=== PATIENT | female | born 1935 | race African-American/Black ===

== ENCOUNTER 2019-07-13 09:38 | Emergency (ER) | payer OTHER ==
[2019-07-13 10:21] VITALS: TEMP 97.1; BMI 21.9
--- NOTE | 2019-07-13 10:43 | PDOC ---
Documentation entered by Delmy Bustamante SCRIBE, acting as scribe for Sharif Menezes MD. Sharif Menezes MD: This documentation has been prepared by the Robby reno Sammi, SCRIBE, under my direction and personally reviewed by me in its entirety. I confirm that the documentation accurately reflects all work, treatment, procedures, and medical decision making performed by me. History of Present Illness - General Chief Complaint: Injury Stated Complaint: FALL Time Seen by Provider: 07/13/19 10:21 - History of Present Illness Initial Comments: 07/13/19 10:38 The patient is an 83 year old female who presents to the emergency department for evaluation of right knee pain s/p falling out of bed. The patient states she was turning in bed when she fell out onto her knees. The patient reports she was able to get up and ambulate on her own afterwards. Denies LOC or head trauma. Denies dizziness or lightheadedness prior to event. Denies chest pain or shortness of breath. Denies fever, chills, nausea, vomiting, diarrhea and constipation. Denies dysuria, frequency, urgency and hematuria. Denies neck, back, or hip pain. PCP: Guillaume Medical history: hypertension, hypercholesterolemia, and diabetes Allergies: enalapril Past History - Past Medical History Allergies/Adverse Reactions: Allergies Allergy/AdvReac Type Severity Reaction Status Date / Time enalapril [Enalapril] Allergy Severe anaphylaxsi Verified 07/13/19 10:21 s Home Medications: Ambulatory Orders Aspirin [ASA -] 81 mg PO DAILY 11/20/12 Calcium Carb/Vit D3/Minerals [Calcium 600 + D Tablet] 1 each PO DAILY 11/20/12 Docusate Sodium [Colace -] 100 mg PO BID 11/20/12 Ergocalciferol (Vitamin D2) [Vitamin D] 50,000 unit PO WEEKLY 11/20/12 Glyburide 5 mg PO DAILY 11/20/12 Hydrochlorothiazide [Hctz] 12.5 mg PO DAILY 11/20/12 Simvastatin [Zocor -] 20 mg PO HS 11/20/12 Spironolactone [Aldactone -] 25 mg PO BID 11/20/12 Anemia: No Asthma: Yes (hasn't had an attack in 13 years) Cancer: No Cardiac Disorders: No CVA: No COPD: No CHF: No Dementia: No Diabetes: Yes Dialysis: (hx renal failure; not on dialysis) GI Disorders: No Disorders: No HTN: Yes Hypercholesterolemia: Yes Liver Disease: No Seizures: No Thyroid Disease: No - Suicide/Smoking/Psychosocial Hx Smoking Status: Yes Smoking History: Never smoked Have you smoked in the past 12 months: No Number of Cigarettes Smoked Daily: 0 Hx Alcohol Use: No Drug/Substance Use Hx: No Substance Use Type: None Hx Substance Use Treatment: No Review of Systems - Review of Systems Comments:: 07/13/19 10:39 GENERAL/CONSTITUTIONAL: No fever or chills. No weakness. HEAD, EYES, EARS, NOSE AND THROAT: No change in vision. No ear pain or discharge. No sore throat. CARDIOVASCULAR: No chest pain, no shortness of breath, no loss of consciousness RESPIRATORY: No cough, wheezing, or hemoptysis. GASTROINTESTINAL: No nausea, vomiting, diarrhea or constipation. GENITOURINARY: No dysuria, frequency, or change in urination. MUSCULOSKELETAL: (+)Right knee pain. No neck or back pain. SKIN: No rash NEUROLOGIC: No vertigo, no change in strength/sensation. *Physical Exam - Vital Signs Last Vital Signs Temp Pulse Resp BP Pulse Ox 97.1 F L 95 H 20 105/60 98 07/13/19 10:17 07/13/19 10:17 07/13/19 10:17 07/13/19 10:17 07/13/19 10:17 - Physical Exam Comments: 07/13/19 10:44 "GENERAL: Awake, alert, and fully oriented, in no acute distress. HEAD: No signs of trauma EYES: PERRLA, EOMI, sclera anicteric, conjunctiva clear ENT: Auricles normal inspection, hearing grossly normal, nares patent, oropharynx clear without exudates. Moist mucosa NECK: Nontender, no stepoffs, Normal ROM, supple, no lymphadenopathy, JVD, or masses LUNGS: Breath sounds equal, clear to auscultation bilaterally. No wheezes, and no crackles HEART: Regular rate and rhythm, normal S1 and S2, no murmurs, rubs or gallops ABDOMEN: Soft, nontender, normoactive bowel sounds. No guarding, no rebound. No masses EXTREMITIES: + mild TTP over R proximal tibia, Normal range of motion, no edema. No clubbing or cyanosis. No cords, erythema NEUROLOGICAL: Cranial nerves II through XII intact. 5/5 strength and sensation in all extremities, Normal speech, normal gait, normal cerebellar function SKIN: Warm, Dry, normal turgor, no rashes or lesions noted. ED Treatment Course - ADDITIONAL ORDERS Additional order review: Laboratory Results 07/13/19 10:13 POC Glucometer 132 07/13/19 10:13 POC Glucometer 132 Medical Decision Making - Medical Decision Making 07/13/19 10:44 83 F with R knee pain after mechanical fall out of bed. - XR R knee 07/13/19 13:01 XR negative Pt is well appearing, with normal vitals. Clinically stable for DC at this time. I discussed the physical exam findings, ancillary test results and final diagnoses with the patient. I answered all of the patient's questions. The patient was satisfied with the care received and felt comfortable with the discharge plan and treatment plan. The patient agrees to follow up with the primary care physician within 24-72 hours. *DC/Admit/Observation/Transfer Diagnosis at time of Disposition: Fall, Knee pain - Discharge Dispostion Disposition: HOME - Referrals Referrals: Kevyn Galaviz MD [Primary Care Provider] - Sharif Mcintosh MD [Staff Physician] - - Patient Instructions Printed Discharge Instructions: DI for Knee Pain Additional Instructions: If your knee pain does not improve within 72 hours, make an appointment with an orthopedic surgeon for further evaluation. If you experience worsening pain, swelling, redness, diffculty walking or bearing weight, or any other concerning symptoms, return to the ER immediately. - Post Discharge Activity - Attestations Physician Attestion: 07/13/19 12:34 I, Dr. Sharif Menezes MD, attest that this document has been prepared under my direction and personally reviewed by me in its entirety. I further attest, that it accurately reflects all work, treatment, procedures and medical decision -making performed by me.
[2019-07-13 13:24] VITALS: BP 118/60; PULSE 76
== END 2019-07-13 13:23 | disposition home or self-care (01) ==
LOC: JER 09:38
DX: M25.561 Pain in right knee (principal); W06.XXXA Fall from bed, initial encounter; Y93.89 Activity, other specified; Y92.032 Bedroom in apartment as the place of occurrence of the external cause; Y99.8 Other external cause status; I10 Essential (primary) hypertension; E11.9 Type 2 diabetes mellitus without complications; E78.00 Pure hypercholesterolemia, unspecified; Z79.84 Long term (current) use of oral hypoglycemic drugs; Z87.448 Personal history of other diseases of urinary system; Z87.09 Personal history of other diseases of the respiratory system
CPT/HCPCS: 73562-TC-RT-FY; 82962; 99281-25

== ENCOUNTER 2019-10-10 09:38 | Emergency (ER) | payer OTHER ==
[2019-10-10 09:55] VITALS: BMI 23.8
--- NOTE | 2019-10-10 10:09 | PDOC ---
History of Present Illness - General Chief Complaint: Blood Sugar Problem Stated Complaint: DIABETIC History Source: Patient Exam Limitations: No Limitations Past History - Past Medical History Allergies/Adverse Reactions: Allergies Allergy/AdvReac Type Severity Reaction Status Date / Time enalapril [Enalapril] Allergy Severe anaphylaxsi Verified 10/10/19 09:55 s Home Medications: Ambulatory Orders Aspirin [ASA -] 81 mg PO DAILY 11/20/12 Calcium Carb/Vit D3/Minerals [Calcium 600 + D Tablet] 1 each PO DAILY 11/20/12 Docusate Sodium [Colace -] 100 mg PO BID 11/20/12 Ergocalciferol (Vitamin D2) [Vitamin D] 50,000 unit PO WEEKLY 11/20/12 Glyburide 5 mg PO DAILY 11/20/12 Hydrochlorothiazide [Hctz] 12.5 mg PO DAILY 11/20/12 Simvastatin [Zocor -] 20 mg PO HS 11/20/12 Spironolactone [Aldactone -] 25 mg PO BID 11/20/12 Anemia: No Asthma: Yes (hasn't had an attack in 13 years) Cancer: No Cardiac Disorders: No CVA: No COPD: No CHF: No Dementia: No Diabetes: Yes Dialysis: (hx renal failure; not on dialysis) GI Disorders: No Disorders: No HTN: Yes Hypercholesterolemia: Yes Liver Disease: No Seizures: No Thyroid Disease: No - Psycho Social/Smoking Cessation Hx Smoking Status: Yes Smoking History: Never smoked Have you smoked in the past 12 months: No Number of Cigarettes Smoked Daily: 0 Information on smoking cessation initiated: No Hx Alcohol Use: No Drug/Substance Use Hx: No Substance Use Type: None Hx Substance Use Treatment: No *Physical Exam - Vital Signs Last Vital Signs Temp Pulse Resp BP Pulse Ox 98.0 F 94 H 16 127/70 100 10/10/19 09:52 10/10/19 09:52 10/10/19 09:52 10/10/19 09:52 10/10/19 09:52 ED Treatment Course - LABORATORY CBC & Chemistry Diagram: 10/10/19 11:30 10/10/19 11:30 - ADDITIONAL ORDERS Additional order review: Laboratory Results 10/10/19 09:54 POC Glucometer 174 10/10/19 09:54 POC Glucometer 174 Discharge - Discharge Information Problems reviewed: Yes Clinical Impression/Diagnosis: Hypoglycemia Condition: Improved - Admission No - Follow up/Referral Referrals: Kevyn Galaviz MD [Primary Care Provider] - - Patient Discharge Instructions Patient Printed Discharge Instructions: DI for Hypoglycemia Additional Instructions: Please return to the emergency department with any new or worsening symptoms or concerns. Please follow up with your primary care physician within 72 hours. - Post Discharge Activity
[2019-10-10] MEDS ORDERED: ACETAMINOPHEN 1000 MG/100 ML VIAL (NON FORMULARY) IVPB ONE (10:17)
--- NOTE | 2019-10-10 10:25 | PDOC ---
Attending Attestation - Resident Resident Name: Corey Serrano - ED Attending Attestation I have performed the following: I have examined & evaluated the patient, The case was reviewed & discussed with the resident, I agree w/resident's findings & plan, Exceptions are as noted - HPI HPI: 10/10/19 10:26 83y F history of asthma, CKD, hypertension, hyperlipidemia DM, presents with a complaint of not feeling well. Patient states she had some mild epigastric pain this morning and 'fell out of his bed', per the aide the she was unable to access her room this morning they called super who broke down the chain -EMS was called noted patient blood sugar was in the 48 and pt was given D10 with improvement of BGM. Patient notes that she also fell out of bed last couple of days ago and injured her foot. Pt denies any nausea/vomiting, diaphoresis, sob , cough, fever/chills, leg swelling, back pain, extremity pain, numbness/ tingling/weakness. Physical exam: GENERAL: The patient is awake, alert, and fully oriented, Nontoxic - in no acute distress. HEAD: Normocephalic, atraumatic. EYES: extraocular movements intact, sclera anicteric, conjunctiva clear. ENT: Normal voice, Moist mucous membranes. NECK: Normal range of motion, supple LUNGS: Breath sounds equal, clear to auscultation bilaterally. No wheezes, no rhonchi, no rales. HEART: Regular rate and rhythm, normal S1 and S2 without murmur, rub or gallop. ABDOMEN: Soft, nontender, No guarding, no rebound. No CVA tenderness EXTREMITIES: Normal range of motion, no edema. Mild tenderness/bruising to L medial ankle. NEUROLOGICAL: No facial assymetry, Normal speech, PSYCH: Normal mood, normal affect. SKIN: Warm, Dry, normal turgor, will ck labs, screen for ACS, pancreatitis unclear cause of her hypotclyemia - she is on a sulfonylurea, but her meds are predivided into pill packs and she has not taken anything extra. will obtain xray of her ankle to r/o fx will reassess and recheck her bgm - Physicial Exam PE: 10/10/19 16:48 see above - Medical Decision Making 10/10/19 15:33 The patient's repeat BGM was 46 I suspect this is due to not having eaten anything since last night. We will give the patient some food and then will recheck her BGM. Heart Score/ECG Review - ECG Impressions Comment:: 10/10/19 16:48 Twelve-lead EKG was performed and reviewed by me. There is normal sinus rhythm with a normal rate. Rate of [address] changes suggestive of acute ischemia
[2019-10-10 11:48] LABS: BASO % 0.7 % (0-2.0); EOS % 1.4 % (0-4.5); HEMOGLOBIN 11.3 GM/dL (10.7-15.3); LYMPH % 17.9 % (8-40); MCH 25.6 pg (25.7-33.7); MCHC 33.1 g/dl (32.0-36.0); MEAN CELL VOLUME 77.4 fl (80-96); MEAN PLT VOLUME 6.5 fl (7.5-11.1); MONO % 7.6 % (3.8-10.2); NEUT % 72.4 % (42.8-82.8); PLATELET COUNT 423 K/MM3 (134-434); RDW 14.7 % (11.6-15.6); WHITE BLOOD COUNT 7.1 K/mm3 (4.0-10.0)
[2019-10-10 12:10] LABS: BILIRUBIN,TOTAL 0.3 mg/dL (0.2-1); BLOOD UREA NITROGEN 12.9 mg/dL (7-18); CALCIUM 9.5 mg/dL (8.5-10.1); CREATININE 1.4 mg/dL (0.55-1.3); POTASSIUM 4.2 mmol/L (3.5-5.1); TOT PROT 7.6 g/dl (6.4-8.2)
[2019-10-10 18:41] VITALS: BP 139/73; PULSE 97; TEMP 98.6
--- NOTE | 2019-10-11 09:25 | EKG ---
Test Reason : Blood Pressure : / mmHG Vent. Rate : 091 BPM Atrial Rate : 091 BPM P-R Int : 186 ms QRS Dur : 070 ms QT Int : 340 ms P-R-T Axes : 072 -22 058 degrees QTc Int : 418 ms NORMAL SINUS RHYTHM POSSIBLE LEFT ATRIAL ENLARGEMENT BORDERLINE ECG WHEN COMPARED WITH ECG OF 07-FEB-2014 13:09, NO SIGNIFICANT CHANGE WAS FOUND Confirmed by MD Stefanie, Darell ([id number]) on 10/11/2019 9:24:45 AM Referred By: Confirmed By:Darell Watts MD
== END 2019-10-10 18:44 | disposition home or self-care (01) ==
LOC: JER 09:38
PROC: 3E033NZ Introduction of Analgesics, Hypnotics, Sedatives into Peripheral Vein, Percutaneous Approach (ICD-10-PCS; principal; 2019-10-10)
DX: E11.649 Type 2 diabetes mellitus with hypoglycemia without coma (principal); Z79.84 Long term (current) use of oral hypoglycemic drugs; I12.9 Hypertensive chronic kidney disease with stage 1 through stage 4 chronic kidney disease, or unspecified chronic kidney disease; E11.22 Type 2 diabetes mellitus with diabetic chronic kidney disease; N18.9 Chronic kidney disease, unspecified; E78.00 Pure hypercholesterolemia, unspecified; Z87.09 Personal history of other diseases of the respiratory system; Z88.8 Allergy status to other drugs, medicaments and biological substances; W06.XXXA Fall from bed, initial encounter; Y93.89 Activity, other specified; Y92.032 Bedroom in apartment as the place of occurrence of the external cause; Y99.8 Other external cause status
CPT/HCPCS: 36415; 70450-TC; 71045-TC-FY; 72125-TC; 73610-TC-LT-FY; 73630-TC-LT; 80053; 82550; 82962; 83690; 84484; 85025; 93005; 93010; 96374; 99283-25; J0131

== ENCOUNTER 2019-11-22 10:57 | Emergency (ER) | payer OTHER ==
--- NOTE | 2019-11-22 11:23 | PDOC ---
History of Present Illness - General Stated Complaint: HYPOGLYCEMIA - History of Present Illness Initial Comments: 11/22/19 11:25 83 yo F with h/o asthma, HTN, HLD, DM, CKD who p/w hypgoclycemia. Patient arrives EMS from home, lives alone, with home health aide/assistance. Patient home health aide reports that patient did not answer door on arrival. Had to call management to let her into apartment. At baseline patient conversational, but this AM patient in bed, partially responsiver to questions. Home health aide called EMS and EMS reports BS~50. Patient usually ambulatory with walker in AM to open door. Patient health aide reports this how patient typically presents with hypoglycemic events following skipped meals. On glyburide 5 mg PO daily, and compliant with medication as directed. However, patient states that she did not take morning medications. Did not take medications yesterday evening (11/21/18) Denies overdose of medication. Patient also reports fatigue and shortness of breath this AM at rest, now resolved. Patient denies ALEXANDER, vision change, palpitations, cough, wheezing, orthopena, PND , leg swelling/pain, N/V, F,C, CP, urinary complaints, hematuria, BPR, abdominal pain, diarrhea, constipation, lightheadedness, weakness, sensory changes. PMHx: as noted above ROS: as noted SHx: Denies Etoh, IVDA, tobacco use Allergies: NKDA Past History - Past Medical History Allergies/Adverse Reactions: Allergies Allergy/AdvReac Type Severity Reaction Status Date / Time enalapril [Enalapril] Allergy Severe anaphylaxsi Verified 11/22/19 11:26 s Home Medications: Ambulatory Orders Aspirin [ASA -] 81 mg PO DAILY 11/20/12 Calcium Carb/Vit D3/Minerals [Calcium 600 + D Tablet] 1 each PO DAILY 11/20/12 Docusate Sodium [Colace -] 100 mg PO BID 11/20/12 Ergocalciferol (Vitamin D2) [Vitamin D] 50,000 unit PO WEEKLY 11/20/12 Glyburide 5 mg PO DAILY 11/20/12 Hydrochlorothiazide [Hctz] 12.5 mg PO DAILY 11/20/12 Simvastatin [Zocor -] 20 mg PO HS 11/20/12 Spironolactone [Aldactone -] 25 mg PO BID 11/20/12 Anemia: No Asthma: Yes (hasn't had an attack in 13 years) Cancer: No Cardiac Disorders: No CVA: No COPD: No CHF: No Dementia: No Diabetes: Yes Dialysis: (hx renal failure; not on dialysis) GI Disorders: No Disorders: No HTN: Yes Hypercholesterolemia: Yes Liver Disease: No Seizures: No Thyroid Disease: No - Psycho Social/Smoking Cessation Hx Smoking Status: Yes Smoking History: Never smoked Have you smoked in the past 12 months: No Number of Cigarettes Smoked Daily: 0 Hx Alcohol Use: No Drug/Substance Use Hx: No Substance Use Type: None Hx Substance Use Treatment: No Review of Systems - Review of Systems Comments:: 11/22/19 11:25 GENERAL/CONSTITUTIONAL: No fever or chills. No weakness. HEAD, EYES, EARS, NOSE AND THROAT: No change in vision. No ear pain or discharge. No sore throat. CARDIOVASCULAR: + SOB. No chest pain. RESPIRATORY: No cough, wheezing, or hemoptysis. GASTROINTESTINAL: No nausea, vomiting, diarrhea or constipation. GENITOURINARY: No dysuria, frequency, or change in urination. MUSCULOSKELETAL: No joint or muscle swelling or pain. No neck or back pain. SKIN: No rash NEUROLOGIC: + Fatigue. No headache, vertigo, loss of consciousness, or change in strength/sensation. ENDOCRINE: No increased thirst. No abnormal weight change HEMATOLOGIC/LYMPHATIC: No anemia, easy bleeding, or history of blood clots. ALLERGIC/IMMUNOLOGIC: No hives or skin allergy. *Physical Exam - Physical Exam 11/22/19 11:26 GENERAL: Awake, alert, and fully oriented, in no acute distress HEAD: No signs of trauma, normocephalic, atraumatic EYES: PERRLA, EOMI, sclera anicteric, conjunctiva clear ENT: Auricles normal inspection, hearing grossly normal, nares patent, oropharynx clear without exudates. Moist mucosa NECK: Normal ROM, supple, no lymphadenopathy, JVD, or masses LUNGS: No distress, speaks full sentences, clear to auscultation bilaterally HEART: Regular rate and rhythm, normal S1 and S2, no murmurs, rubs or gallops, peripheral pulses normal and equal bilaterally. ABDOMEN: Soft, nontender, normoactive bowel sounds. No guarding, no rebound. No masses EXTREMITIES : Normal inspection, Normal range of motion, no edema. No clubbing or cyanosis NEUROLOGICAL: Cranial nerves II through XII grossly intact. Normal speech, no focal sensorimotor deficits SKIN: Warm, Dry, normal turgor, no rashes or lesions noted ED Treatment Course - LABORATORY CBC & Chemistry Diagram: 11/22/19 11:40 11/22/19 11:40 Medical Decision Making - Medical Decision Making 11/22/19 11:31 83 yo F with h/o asthma, HTN, HLD, DM, CKD BIBEMS with hypgoclycemia BS~50, AMS/ lethargy. HR 106, vitals otherwise wnl, AF, A&OX3. BS ~32. On initial exam in ED patient A&Ox2, partially following commands, and slow speech. BS~30 in ED. Patient given D50 25gm, with improvement in BS to 302, with return to baseline mental status A&Ox3. Patient reports last home glyburide use yesterday (11/21/18 ) morning. Denies beta kristie or long acting insulin use. Will consider infectious etiology, although, patient currently without infectious sx./ complaints. Patient last meal was yesterday (11/21/18) at approximately 5:30 PM. Currently denies cough, wheezing, N/V, F,C, CP, palpitations, SOB, urinary complaints, hematuria, BPR, abdominal pain, diarrhea, lightheadedness, weakness , sensory changes. Will obtain basic lab eval, reassess/monitor BS. 11/22/19 11:32 ED Course: BS~302 11/22/19 13:33 Laboratory Tests 11/22/19 11/22/19 11:40 11:40 WBC 5.9 Hgb 11.9 Hct 36.3 Plt Count 402 Sodium 138 Potassium 4.0 BUN 10.3 Creatinine 1.2 Random Glucose 31 L* AST 25 ALT 17 11/22/19 14:18 Pt. tolerating PO intake Repeat BS ~100 Stable for d/c with return precautions. Discharge - Discharge Information Problems reviewed: Yes Clinical Impression/Diagnosis: Hypoglycemia - Admission No - Follow up/Referral Referrals: Kevyn Galaviz MD [Primary Care Provider] - - Patient Discharge Instructions Patient Printed Discharge Instructions: DI for Hypoglycemia Additional Instructions: Please return to the emergency department with any new or worsening symptoms or concerns. Please follow up with your primary care physician within 72 hours. - Post Discharge Activity
[2019-11-22 11:26] VITALS: BMI 16.5
[2019-11-22] MEDS ORDERED: DEXTROSE 50%-WATER - 25 GM/50 ML VIAL IVPUSH ONE (11:45)
[2019-11-22] MEDS ORDERED: DEXTROSE 50%-WATER 25 GM/50 ML DISP.SYRIN ONE (11:46)
[2019-11-22 12:27] LABS: BASO % 0.8 % (0-2.0); EOS % 1.2 % (0-4.5); HEMATOCRIT 36.3 % (32.4-45.2); HEMOGLOBIN 11.9 GM/dL (10.7-15.3); LYMPH % 15.8 % (8-40); MCH 25.4 pg (25.7-33.7); MCHC 32.7 g/dl (32.0-36.0); MEAN CELL VOLUME 77.7 fl (80-96); MEAN PLT VOLUME 7.1 fl (7.5-11.1); MONO % 7.3 % (3.8-10.2); NEUT % 74.9 % (42.8-82.8); PLATELET COUNT 402 K/MM3 (134-434); RBC 4.67 M/mm3 (3.60-5.2); RDW 17.3 % (11.6-15.6); WHITE BLOOD COUNT 5.9 K/mm3 (4.0-10.0)
--- NOTE | 2019-11-22 12:33 | EKG ---
Test Reason : Blood Pressure : / mmHG Vent. Rate : 108 BPM Atrial Rate : 108 BPM P-R Int : 190 ms QRS Dur : 074 ms QT Int : 336 ms P-R-T Axes : 054 -17 053 degrees QTc Int : 450 ms SINUS TACHYCARDIA POSSIBLE LEFT ATRIAL ENLARGEMENT BORDERLINE ECG Confirmed by MD MYRIAM, NEGIN ([id number]) on 11/22/2019 12:33:07 PM Referred By: Confirmed By:NEGIN MIGUEL MD
--- NOTE | 2019-11-22 12:37 | PDOC ---
Documentation entered by Mila Garvin SCRIBE, acting as scribe for Sharif Menezes MD. Sharif Menezes MD: This documentation has been prepared by the Virgie reno Xhesika, SCRIBE, under my direction and personally reviewed by me in its entirety. I confirm that the documentation accurately reflects all work, treatment, procedures, and medical decision making performed by me. Attending Attestation - Resident Resident Name: MattDiallo - ED Attending Attestation I have performed the following: I have examined & evaluated the patient, The case was reviewed & discussed with the resident, I agree w/resident's findings & plan, Exceptions are as noted - HPI HPI: 11/22/19 12:03 The patient is a 83 year old female, with a significant PMH of asthma, HTN, HLD , DM, CKD who presents to the emergency department for hypoglycemia. Patient is a poor historian but pts aid at bedside providing history. Aid at bedside states the pt did not open the door this morning and had to call management to enter patient's home. Aid notes she found the patient confused, slow to respond and in bed this morning. Aid notes these symptoms are similar to patients previous hypoglycemic events. Pt states she is on Glyburide and did not eat last night or this morning. Reports feeling fatigued this morning but denies any other complaints. The patient denies chest pain, SOB, headache and dizziness. Denies fever, chills , cough, nausea, vomiting, diarrhea and constipation. Denies dysuria, frequency , urgency and hematuria. In ED, pt was found to have fingerstick of 30. Pt was given 1 amp D50 and subsequently returned to baseline, according to aide. Allergies: NKDA PCP: Kevyn Granado - Physicial Exam PE: 11/22/19 12:05 GENERAL: Awake, alert, in no acute distress. HEAD: No signs of trauma EYES: PERRLA, EOMI, sclera anicteric, conjunctiva clear ENT: Auricles normal inspection, hearing grossly normal, nares patent, oropharynx clear without exudates. Moist mucosa NECK: Nontender, no stepoffs, Normal ROM, supple, no lymphadenopathy, JVD, or masses LUNGS: Breath sounds equal, clear to auscultation bilaterally. No wheezes, and no crackles HEART: Regular rate and rhythm, normal S1 and S2, no murmurs, rubs or gallops ABDOMEN: Soft, nontender, normoactive bowel sounds. No guarding, no rebound. No masses EXTREMITIES: Normal range of motion, no edema. No clubbing or cyanosis. No cords, erythema, or tenderness NEUROLOGICAL: Cranial nerves II through XII intact. 5/5 strength and sensation in all extremities, Normal speech, normal gait, normal cerebellar function SKIN: Warm, Dry, normal turgor, no rashes or lesions noted. - Medical Decision Making 11/22/19 12:46 83 F with transient episode of AMS, now resolved. Likely 2/2 hypoglycemia. No evidence of sulfonylurea overdose. - labs - Repeat fingerstick - PO 11/22/19 14:02 Labs unremarkable (other than initial glucose of 30) Repeat fingerstick wnl Pt tolerating PO Pt is well appearing, with normal vitals. Clinically stable for DC at this time. I discussed the physical exam findings, ancillary test results and final diagnoses with the patient. I answered all of the patient's questions. The patient was satisfied with the care received and felt comfortable with the discharge plan and treatment plan. The patient agrees to follow up with the primary care physician within 24-72 hours.
[2019-11-22 12:52] LABS: ALBUMIN 3.6 g/dl (3.4-5.0); BILIRUBIN,TOTAL 0.4 mg/dL (0.2-1); BLOOD UREA NITROGEN 10.3 mg/dL (7-18); CALCIUM 9.8 mg/dL (8.5-10.1); CREATININE 1.2 mg/dL (0.55-1.3); TOT PROT 8.4 g/dl (6.4-8.2)
[2019-11-22 16:56] VITALS: BP 156/71; PULSE 87; TEMP 98
== END 2019-11-22 16:57 | disposition home or self-care (01) ==
LOC: JER 10:57
DX: E11.649 Type 2 diabetes mellitus with hypoglycemia without coma (principal); Z79.84 Long term (current) use of oral hypoglycemic drugs; E78.00 Pure hypercholesterolemia, unspecified; I12.9 Hypertensive chronic kidney disease with stage 1 through stage 4 chronic kidney disease, or unspecified chronic kidney disease; E11.22 Type 2 diabetes mellitus with diabetic chronic kidney disease; N18.9 Chronic kidney disease, unspecified
CPT/HCPCS: 36415; 80053; 82962; 85025; 93005; 93010; 99284-25

== ENCOUNTER 2022-08-07 21:49 | Inpatient (IN) | payer OTHER ==
[2022-08-08] LABS: BASO % 0.3 % (0-2.0); HEMATOCRIT 42.8 % (32.4-45.2); HEMOGLOBIN 13.5 GM/dL (10.7-15.3); LYMPH % 7.8 % (8-40); MCH 27.7 pg (25.7-33.7); MCHC 31.6 g/dl (32.0-36.0); MEAN CELL VOLUME 87.6 fl (80-96); MEAN PLT VOLUME 7.6 fl (7.5-11.1); MONO % 4.9 % (3.8-10.2); PLATELET COUNT 332 10^3/uL (134-434); RBC 4.88 M/mm3 (3.60-5.2); RDW 14.5 % (11.6-15.6); WHITE BLOOD COUNT 16.2 K/mm3 (4.0-10.0)
[2022-08-08 00:16] LABS: ALBUMIN 4.3 g/dl (3.4-5.0); BLOOD UREA NITROGEN 33.5 mg/dL (7-18)
[2022-08-08 00:19] LABS: CREATININE 1.8 mg/dL (0.55-1.3)
[2022-08-08 00:21] LABS: BILIRUBIN,TOTAL 0.8 mg/dL (0.2-1); TOT PROT 8.5 g/dl (6.4-8.2)
[2022-08-08] MEDS ORDERED: SODIUM CHLORIDE 0.9% 500 ML INFUS.BAG IV ONE ×2 (00:41→03:09)
[2022-08-08] MEDS ORDERED: HALOPERIDOL LACTATE 5 MG/ML IV ONE (03:55)
[2022-08-08] MEDS ORDERED: HALOPERIDOL LACTATE 5 MG/ML ONE (03:56)
[2022-08-08] MEDS ORDERED: LACTATED RINGERS SOLUTION 1,000 ML IV SCH ×2 (05:15→05:29)
[2022-08-08] MEDS: HEPARIN NA (PORCINE) 5,000 UNITS/ML 1ML VIAL SQ SCH ×3 (06:40→23:42)
[2022-08-08] MEDS: INSULIN SLIDING SCALE (NOVOLOG) 1 VIAL SQ SCH ×4 (06:41→23:42)
[2022-08-08 15:18] VITALS: BMI 15.9
[2022-08-09] MEDS: HEPARIN NA (PORCINE) 5,000 UNITS/ML 1ML VIAL SQ SCH ×3 (00:06→13:43)
[2022-08-09] MEDS: INSULIN SLIDING SCALE (NOVOLOG) 1 VIAL SQ SCH ×3 (00:07→11:55)
[2022-08-09 10:54] VITALS: RESP 20
[2022-08-09 13:07] LABS: BASO % 0.5 % (0-2.0); EOS % 0.6 % (0-4.5); HEMATOCRIT 39.7 % (32.4-45.2); HEMOGLOBIN 13.3 GM/dL (10.7-15.3); LYMPH % 16.4 % (8-40); MCH 28.4 pg (25.7-33.7); MCHC 33.5 g/dl (32.0-36.0); MEAN CELL VOLUME 84.9 fl (80-96); MEAN PLT VOLUME 7.2 fl (7.5-11.1); MONO % 6.5 % (3.8-10.2); PLATELET COUNT 318 10^3/uL (134-434); RBC 4.68 M/mm3 (3.60-5.2); RDW 14.2 % (11.6-15.6); WHITE BLOOD COUNT 9.7 K/mm3 (4.0-10.0)
[2022-08-09 13:31] LABS: CALCIUM 9.9 mg/dL (8.5-10.1)
[2022-08-09 13:33] LABS: ALBUMIN 3.6 g/dl (3.4-5.0); BLOOD UREA NITROGEN 26.4 mg/dL (7-18); MAGNESIUM 2.2 mg/dL (1.8-2.4)
[2022-08-09 13:35] LABS: CREATININE 1.2 mg/dL (0.55-1.3); PHOSPHOROUS 2.2 mg/dL (2.5-4.9)
[2022-08-09 13:36] LABS: BILIRUBIN,TOTAL 0.8 mg/dL (0.2-1)
[2022-08-09 13:37] LABS: TOT PROT 7.5 g/dl (6.4-8.2)
[2022-08-09 15:33] VITALS: BP 136/75; PULSE 92; TEMP 98.8
== END 2022-08-09 15:39 | disposition home health service (06) | DRG 884 ==
LOC: JER 21:49 → JERBED 08-08 03:11 → J8W 08-08 05:31
PROVIDERS: ADMIT Internal Medicine; ATTEND Internal Medicine
DX: F03.918 Unspecified dementia, unspecified severity, with other behavioral disturbance (principal); N17.9 Acute kidney failure, unspecified; J45.909 Unspecified asthma, uncomplicated; Z91.83 Wandering in diseases classified elsewhere; I12.9 Hypertensive chronic kidney disease with stage 1 through stage 4 chronic kidney disease, or unspecified chronic kidney disease; E11.22 Type 2 diabetes mellitus with diabetic chronic kidney disease; N18.9 Chronic kidney disease, unspecified; I44.0 Atrioventricular block, first degree; D72.829 Elevated white blood cell count, unspecified; Z79.84 Long term (current) use of oral hypoglycemic drugs
CPT/HCPCS: 0241U-QW; 36415; 71045-TC-FY; 80053; 82550; 82553; 82962; 83036; 83735; 84100; 85025; 87040; 93005; 93010; 99285-25; J1644

== ENCOUNTER 2022-10-17 13:13 | Observation (INO) | payer OTHER ==
[2022-10-17] MEDS ORDERED: ACETAMINOPHEN 500 MG TABLET (FP) PO ONE (14:30)
[2022-10-17 19:00] LABS: BASO % 0.6 % (0-2.0); EOS % 1.4 % (0-4.5); HEMATOCRIT 40.3 % (32.4-45.2); HEMOGLOBIN 13.3 GM/dL (10.7-15.3); MCH 28.5 pg (25.7-33.7); MEAN CELL VOLUME 86.3 fl (80-96); MEAN PLT VOLUME 7.6 fl (7.5-11.1); MONO % 5.7 % (3.8-10.2); NEUT % 67.3 % (42.8-82.8); PLATELET COUNT 346 10^3/uL (134-434); RBC 4.68 M/mm3 (3.60-5.2); RDW 13.9 % (11.6-15.6); WHITE BLOOD COUNT 9.9 K/mm3 (4.0-10.0)
[2022-10-17 19:22] LABS: CALCIUM 9.3 mg/dL (8.5-10.1)
[2022-10-17 19:23] LABS: ALBUMIN 3.8 g/dl (3.4-5.0); BLOOD UREA NITROGEN 26.6 mg/dL (7-18)
[2022-10-17 19:26] LABS: CREATININE 1.3 mg/dL (0.55-1.3)
[2022-10-17 19:27] LABS: BILIRUBIN,TOTAL 0.3 mg/dL (0.2-1)
[2022-10-17 19:29] LABS: TOT PROT 7.9 g/dl (6.4-8.2)
[2022-10-17] MEDS ORDERED: fentaNYL CITRATE 250 MCG/5 ML VIAL ONE (19:33)
[2022-10-17] MEDS ORDERED: ACETAMINOPHEN 325 MG TABLET (FP) ONE (19:33)
[2022-10-17] MEDS ORDERED: LIDOCAINE 5% TOPICAL PATCH TP ONE (20:11)
[2022-10-17] MEDS ORDERED: ACETAMINOPHEN 1000 MG/100 ML BAG IVPB PRN (20:11)
[2022-10-17] MEDS ORDERED: HALOPERIDOL LACTATE 5 MG/ML IM PRN (22:17)
[2022-10-17] MEDS: LIDOCAINE PATCH REMOVAL MC SCH (22:18)
[2022-10-17] MEDS: INSULIN SLIDING SCALE (NOVOLOG) 1 VIAL SQ SCH (22:18)
[2022-10-17] MEDS ORDERED: ATORVASTATIN CA 10 MG TABLET (FP) ONE (22:21)
[2022-10-17] MEDS ORDERED: LIDOCAINE 5% TOPICAL PATCH ONE (22:21)
[2022-10-17] MEDS: ATORVASTATIN CA 10 MG TABLET (FP) PO SCH (22:35)
[2022-10-17] MEDS: CINACALCET HCL 30 MG TAB (FP) PO SCH (22:35)
[2022-10-17] MEDS: MEMANTINE HCL 5 MG TABLET (UD) PO SCH (22:35)
[2022-10-18] MEDS ORDERED: traMADol HCL 50 MG TABLET PO ONE (05:45)
[2022-10-18] MEDS: INSULIN SLIDING SCALE (NOVOLOG) 1 VIAL SQ SCH ×4 (07:00→21:46)
[2022-10-18] MEDS ORDERED: ENOXAPARIN NA (PORCINE) 40 MG/0.4 ML DISP.SYRIN SQ SCH (10:00)
[2022-10-18] MEDS ORDERED: PATIENT'S OWN MEDICATION (NON-FORMULARY) (Lisinopril [Zestril] 2.5 MG Tablet) PO SCH (10:00)
[2022-10-18] MEDS: amLODIPine BESYLATE 10 MG TABLET (FP) PO SCH (11:14)
[2022-10-18] MEDS: ENOXAPARIN NA (PORCINE) 30 MG/0.3 ML DISP.SYRIN SQ SCH (11:14)
[2022-10-18] MEDS: ASPIRIN COATED 81 MG TABLET.EC PO SCH (11:14)
[2022-10-18] MEDS: DONEPEZIL HCL 10 MG TABLET (FP) PO SCH (11:15)
[2022-10-18] MEDS: CINACALCET HCL 30 MG TAB (FP) PO SCH ×2 (12:17→21:32)
[2022-10-18] MEDS: MEMANTINE HCL 5 MG TABLET (UD) PO SCH ×2 (12:17→21:32)
[2022-10-18] MEDS: QUEtiapine FUMARATE 25 MG TABLET PO SCH (14:01)
[2022-10-18 14:56] VITALS: BMI 18.3
[2022-10-18 15:25] LABS: EPI CELLS 7 /uL (0-25.1); HYALINE CASTS 3 /uL (0-3.1); URINE APPEARANCE CLOUDY; URINE BACTERIA >9,000 /uL (0-1359); URINE BILIRUBIN NEGATIVE (NEGATIVE); URINE COLOR YELLOW; URINE GLUCOSE (UA) NEGATIVE (NEGATIVE); URINE KETONE NEGATIVE (NEGATIVE); URINE LEUK ESTERASE 3+ (NEGATIVE); URINE NITRITE NEGATIVE (NEGATIVE); URINE PROTEIN TRACE (NEGATIVE); URINE RBC 17 /uL (0-23.9); URINE UROBILINOGEN 0.2 mg/dL (0.2-1.0); URINE WBC 367 /uL (0-25.8)
[2022-10-18] MEDS ORDERED: INSULIN (NOVOLOG) ASPART 100 UNITS/ML 10ML VIAL ONE (21:29)
[2022-10-18] MEDS: ATORVASTATIN CA 10 MG TABLET (FP) PO SCH (21:32)
[2022-10-18] MEDS: ACETAMINOPHEN 325 MG TABLET (FP) PO PRN (21:35)
[2022-10-18] MEDS: LIDOCAINE PATCH REMOVAL MC SCH (21:46)
[2022-10-19] MEDS: INSULIN SLIDING SCALE (NOVOLOG) 1 VIAL SQ SCH ×4 (06:20→21:09)
[2022-10-19] MEDS: MEMANTINE HCL 5 MG TABLET (UD) PO SCH ×2 (09:36→21:09)
[2022-10-19] MEDS: ENOXAPARIN NA (PORCINE) 30 MG/0.3 ML DISP.SYRIN SQ SCH (09:36)
[2022-10-19] MEDS: CINACALCET HCL 30 MG TAB (FP) PO SCH ×2 (09:37→21:08)
[2022-10-19] MEDS: QUEtiapine FUMARATE 25 MG TABLET PO SCH (09:37)
[2022-10-19] MEDS: ASPIRIN COATED 81 MG TABLET.EC PO SCH (09:38)
[2022-10-19] MEDS: amLODIPine BESYLATE 10 MG TABLET (FP) PO SCH (09:38)
[2022-10-19] MEDS: DONEPEZIL HCL 10 MG TABLET (FP) PO SCH (09:38)
[2022-10-19] MEDS: ACETAMINOPHEN 325 MG TABLET (FP) PO PRN ×2 (09:49→20:55)
[2022-10-19] MEDS ORDERED: CEFTRIAXONE 1 GM in DEXTROSE 5%-WATER - 50 ML IVPB SCH (10:00)
[2022-10-19] MEDS: AMOX TR/POT CLAV 500MG/125MG TABLETS (FP) PO SCH (16:38)
[2022-10-19] MEDS: ATORVASTATIN CA 10 MG TABLET (FP) PO SCH (21:09)
[2022-10-19] MEDS: LIDOCAINE PATCH REMOVAL MC SCH (21:09)
[2022-10-20] MEDS: ACETAMINOPHEN 325 MG TABLET (FP) PO PRN (05:53)
[2022-10-20] MEDS: INSULIN SLIDING SCALE (NOVOLOG) 1 VIAL SQ SCH ×4 (06:03→21:49)
[2022-10-20] MEDS: AMOX TR/POT CLAV 500MG/125MG TABLETS (FP) PO SCH (09:32)
[2022-10-20] MEDS: amLODIPine BESYLATE 10 MG TABLET (FP) PO SCH (09:43)
[2022-10-20] MEDS: ASPIRIN COATED 81 MG TABLET.EC PO SCH (09:43)
[2022-10-20] MEDS: QUEtiapine FUMARATE 25 MG TABLET PO SCH (09:43)
[2022-10-20] MEDS: MEMANTINE HCL 5 MG TABLET (UD) PO SCH ×2 (09:45→21:49)
[2022-10-20] MEDS: CINACALCET HCL 30 MG TAB (FP) PO SCH ×2 (09:45→21:49)
[2022-10-20] MEDS: ENOXAPARIN NA (PORCINE) 30 MG/0.3 ML DISP.SYRIN SQ SCH (09:46)
[2022-10-20] MEDS: DONEPEZIL HCL 10 MG TABLET (FP) PO SCH (09:48)
[2022-10-20 10:11] LABS: BASO % 0.6 % (0-2.0); EOS % 1.9 % (0-4.5); HEMATOCRIT 37.3 % (32.4-45.2); HEMOGLOBIN 12.1 GM/dL (10.7-15.3); LYMPH % 27.2 % (8-40); MCH 28.2 pg (25.7-33.7); MCHC 32.4 g/dl (32.0-36.0); MEAN CELL VOLUME 86.9 fl (80-96); MEAN PLT VOLUME 7.8 fl (7.5-11.1); MONO % 7.7 % (3.8-10.2); NEUT % 62.6 % (42.8-82.8); PLATELET COUNT 326 10^3/uL (134-434); RBC 4.29 M/mm3 (3.60-5.2); RDW 13.6 % (11.6-15.6); WHITE BLOOD COUNT 7.8 K/mm3 (4.0-10.0)
[2022-10-20 10:59] LABS: CALCIUM 8.6 mg/dL (8.5-10.1)
[2022-10-20 11:03] LABS: CREATININE 1.6 mg/dL (0.55-1.3)
[2022-10-20] MEDS: LIDOCAINE 5% TOPICAL PATCH TP SCH (11:22)
[2022-10-20] MEDS: ACETAMINOPHEN 325 MG TABLET (FP) PO SCH ×2 (13:31→17:14)
[2022-10-20 15:18] VITALS: RESP 20
[2022-10-20] MEDS: ATORVASTATIN CA 10 MG TABLET (FP) PO SCH (21:47)
[2022-10-20] MEDS: CEFUROXIME AXETIL 500 MG TABLET PO SCH (21:50)
[2022-10-20] MEDS ORDERED: LIDOCAINE PATCH REMOVAL MC SCH (22:00)
[2022-10-20] MEDS ORDERED: MELATONIN 1 MG TABLET PO ONE (22:00)
[2022-10-21] MEDS: ACETAMINOPHEN 325 MG TABLET (FP) PO SCH ×2 (01:11→07:03)
[2022-10-21] MEDS: INSULIN SLIDING SCALE (NOVOLOG) 1 VIAL SQ SCH (07:04)
[2022-10-21] MEDS: QUEtiapine FUMARATE 25 MG TABLET PO SCH (09:56)
[2022-10-21] MEDS: amLODIPine BESYLATE 10 MG TABLET (FP) PO SCH (09:56)
[2022-10-21] MEDS: ASPIRIN COATED 81 MG TABLET.EC PO SCH (09:56)
[2022-10-21] MEDS: DONEPEZIL HCL 10 MG TABLET (FP) PO SCH (09:56)
[2022-10-21] MEDS: LIDOCAINE 5% TOPICAL PATCH TP SCH (09:57)
[2022-10-21] MEDS: MEMANTINE HCL 5 MG TABLET (UD) PO SCH (09:57)
[2022-10-21] MEDS: ENOXAPARIN NA (PORCINE) 30 MG/0.3 ML DISP.SYRIN SQ SCH (09:57)
[2022-10-21] MEDS: CEFUROXIME AXETIL 500 MG TABLET PO SCH (09:57)
[2022-10-21] MEDS: CINACALCET HCL 30 MG TAB (FP) PO SCH (09:57)
[2022-10-21 10:26] VITALS: BP 142/65; PULSE 85; TEMP 98.7
== END 2022-10-21 10:29 | disposition home or self-care (01) ==
LOC: JER 13:13 → JERBED 20:21 → J8W 10-18 07:30
PROVIDERS: ADMIT Internal Medicine; ATTEND Nurse Practitioner Acute Care
PROC: 3E03329 Introduction of Other Anti-infective into Peripheral Vein, Percutaneous Approach (ICD-10-PCS; principal; 2022-10-17)
PROC: 3E023GC Introduction of Other Therapeutic Substance into Muscle, Percutaneous Approach (ICD-10-PCS; 2022-10-17)
PROC: 3E033NZ Introduction of Analgesics, Hypnotics, Sedatives into Peripheral Vein, Percutaneous Approach (ICD-10-PCS; 2022-10-17)
DX: S22.41XA Multiple fractures of ribs, right side, initial encounter for closed fracture (principal); E11.22 Type 2 diabetes mellitus with diabetic chronic kidney disease; I13.10 Hypertensive heart and chronic kidney disease without heart failure, with stage 1 through stage 4 chronic kidney disease, or unspecified chronic kidney disease; N18.9 Chronic kidney disease, unspecified; E78.5 Hyperlipidemia, unspecified; W06.XXXA Fall from bed, initial encounter; Y93.89 Activity, other specified; Y92.003 Bedroom of unspecified non-institutional (private) residence as the place of occurrence of the external cause
CPT/HCPCS: 0241U-QW; 36415; 70450-TC; 71250-TC; 72125-TC; 72170-TC-FY; 80048; 80053; 81003; 82550; 82962; 85025; 87086; 87186; 93005; 93010; 96365; 96372; 96375; 97116-GP; 97161-GP; 99285-25; G0378

== ENCOUNTER 2022-12-18 10:59 | Observation (INO) | payer OTHER ==
[2022-12-18 13:24] LABS: BASO % 0.7 % (0-2.0); EOS % 2.7 % (0-4.5); HEMATOCRIT 34.8 % (32.4-45.2); HEMOGLOBIN 11.5 GM/dL (10.7-15.3); LYMPH % 32.1 % (8-40); MCH 28.4 pg (25.7-33.7); MEAN CELL VOLUME 85.9 fl (80-96); MEAN PLT VOLUME 7.8 fl (7.5-11.1); MONO % 8.2 % (3.8-10.2); NEUT % 56.3 % (42.8-82.8); PLATELET COUNT 261 10^3/uL (134-434); RBC 4.05 M/mm3 (3.60-5.2); RDW 14.1 % (11.6-15.6)
[2022-12-18 13:29] LABS: INR 0.97 (0.83-1.09); PROTHROMBIN TIME (PATIENT) 11.3 SEC (9.7-13.0)
[2022-12-18 13:32] LABS: ACTIVATED PTT 24.1 SECONDS (25.2-36.5)
[2022-12-18 14:09] LABS: ALBUMIN 3.6 g/dl (3.4-5.0)
[2022-12-18 14:12] LABS: CREATININE 1.4 mg/dL (0.55-1.3)
[2022-12-18 14:13] LABS: BILIRUBIN,TOTAL 0.5 mg/dL (0.2-1)
[2022-12-18 14:14] LABS: TOT PROT 7.7 g/dl (6.4-8.2)
[2022-12-18 16:26] LABS: BASO % 0.6 % (0-2.0); EOS % 2.5 % (0-4.5); HEMOGLOBIN 11.6 GM/dL (10.7-15.3); LYMPH % 25.8 % (8-40); MCH 28.4 pg (25.7-33.7); MCHC 33.2 g/dl (32.0-36.0); MEAN CELL VOLUME 85.6 fl (80-96); MEAN PLT VOLUME 7.4 fl (7.5-11.1); MONO % 8.5 % (3.8-10.2); NEUT % 62.6 % (42.8-82.8); PLATELET COUNT 252 10^3/uL (134-434); RBC 4.09 M/mm3 (3.60-5.2); RDW 13.8 % (11.6-15.6); WHITE BLOOD COUNT 8.5 K/mm3 (4.0-10.0)
[2022-12-18] MEDS: DEXTROSE 5%-NORMAL SALINE 1,000 ML IV SCH (17:44)
[2022-12-18] MEDS ORDERED: PANTOPRAZOLE SODIUM 40 MG VIAL ONE (21:21)
[2022-12-18] MEDS: PANTOPRAZOLE SODIUM 40 MG VIAL IVPUSH SCH (21:27)
[2022-12-19 03:02] VITALS: RESP 20
[2022-12-19] MEDS: PANTOPRAZOLE SODIUM 40 MG VIAL IVPUSH SCH (10:25)
[2022-12-19] MEDS: MEMANTINE HCL 5 MG TABLET (UD) PO SCH ×2 (11:13→21:43)
[2022-12-19 12:28] LABS: BASO % 0.8 % (0-2.0); EOS % 1.8 % (0-4.5); HEMATOCRIT 32.5 % (32.4-45.2); HEMOGLOBIN 10.9 GM/dL (10.7-15.3); LYMPH % 18.2 % (8-40); MCH 28.4 pg (25.7-33.7); MCHC 33.6 g/dl (32.0-36.0); MEAN CELL VOLUME 84.4 fl (80-96); MEAN PLT VOLUME 7.1 fl (7.5-11.1); MONO % 7.7 % (3.8-10.2); NEUT % 71.5 % (42.8-82.8); PLATELET COUNT 256 10^3/uL (134-434); RBC 3.85 M/mm3 (3.60-5.2); RDW 13.6 % (11.6-15.6); WHITE BLOOD COUNT 8.1 K/mm3 (4.0-10.0)
[2022-12-19 12:44] LABS: BLOOD UREA NITROGEN 27.2 mg/dL (7-18); CALCIUM 8.8 mg/dL (8.5-10.1)
[2022-12-19 12:47] LABS: CREATININE 1.5 mg/dL (0.55-1.3)
[2022-12-19] MEDS: POLYETHYLENE GLYCOL (HEALTHYLAX) 3350 17 GM PACKET PO SCH ×2 (13:25→21:43)
[2022-12-19] MEDS: DEXTROSE 5%-NORMAL SALINE 1,000 ML IV SCH ×2 (16:45→18:18)
[2022-12-19] MEDS: DONEPEZIL HCL 10 MG TABLET (FP) PO SCH (18:16)
[2022-12-20] MEDS: POLYETHYLENE GLYCOL (HEALTHYLAX) 3350 17 GM PACKET PO SCH ×3 (06:33→22:17)
[2022-12-20] MEDS: AMINO ACIDS/PROTEIN HYDROLYS 30 ML LIQUID.PKT PO SCH ×2 (08:55→17:38)
[2022-12-20] MEDS: MEMANTINE HCL 5 MG TABLET (UD) PO SCH ×2 (09:14→22:17)
[2022-12-20] MEDS: PANTOPRAZOLE 40 MG TABLET PO SCH (09:14)
[2022-12-20 10:45] LABS: BASO % 0.7 % (0-2.0); EOS % 1.5 % (0-4.5); HEMATOCRIT 33.7 % (32.4-45.2); HEMOGLOBIN 11.4 GM/dL (10.7-15.3); MCH 28.7 pg (25.7-33.7); MCHC 33.8 g/dl (32.0-36.0); MEAN CELL VOLUME 85.1 fl (80-96); MEAN PLT VOLUME 7.5 fl (7.5-11.1); MONO % 7.2 % (3.8-10.2); NEUT % 73.6 % (42.8-82.8); PLATELET COUNT 233 10^3/uL (134-434); RBC 3.96 M/mm3 (3.60-5.2); RDW 13.8 % (11.6-15.6); WHITE BLOOD COUNT 6.9 K/mm3 (4.0-10.0)
[2022-12-20 11:04] LABS: CALCIUM 8.8 mg/dL (8.5-10.1)
[2022-12-20 11:05] LABS: ALBUMIN 3.3 g/dl (3.4-5.0); BLOOD UREA NITROGEN 17.8 mg/dL (7-18); MAGNESIUM 1.9 mg/dL (1.8-2.4)
[2022-12-20 11:08] LABS: CREATININE 1.5 mg/dL (0.55-1.3)
[2022-12-20 11:10] LABS: BILIRUBIN,TOTAL 0.4 mg/dL (0.2-1)
[2022-12-20] MEDS: DEXTROSE 5%-NORMAL SALINE 1,000 ML IV SCH (17:32)
[2022-12-20] MEDS: DONEPEZIL HCL 10 MG TABLET (FP) PO SCH (17:38)
[2022-12-21] MEDS: POLYETHYLENE GLYCOL (HEALTHYLAX) 3350 17 GM PACKET PO SCH ×4 (07:08→23:09)
[2022-12-21 09:00] LABS: BASO % 0.6 % (0-2.0); HEMATOCRIT 32.8 % (32.4-45.2); HEMOGLOBIN 11.1 GM/dL (10.7-15.3); LYMPH % 28.4 % (8-40); MCH 28.8 pg (25.7-33.7); MCHC 33.9 g/dl (32.0-36.0); MEAN CELL VOLUME 84.8 fl (80-96); MEAN PLT VOLUME 7.6 fl (7.5-11.1); PLATELET COUNT 239 10^3/uL (134-434); RBC 3.86 M/mm3 (3.60-5.2); RDW 13.8 % (11.6-15.6); WHITE BLOOD COUNT 6.9 K/mm3 (4.0-10.0)
[2022-12-21 09:37] LABS: CALCIUM 9.2 mg/dL (8.5-10.1)
[2022-12-21 09:38] LABS: CREATININE 1.2 mg/dL (0.55-1.3)
[2022-12-21 09:39] LABS: ALBUMIN 3.2 g/dl (3.4-5.0); BLOOD UREA NITROGEN 14.9 mg/dL (7-18)
[2022-12-21 09:40] LABS: BILIRUBIN,TOTAL 0.5 mg/dL (0.2-1); MAGNESIUM 1.8 mg/dL (1.8-2.4); TOT PROT 6.7 g/dl (6.4-8.2)
[2022-12-21] MEDS: AMINO ACIDS/PROTEIN HYDROLYS 30 ML LIQUID.PKT PO SCH ×2 (11:54→18:22)
[2022-12-21] MEDS: MEMANTINE HCL 5 MG TABLET (UD) PO SCH ×2 (11:55→23:01)
[2022-12-21] MEDS: PANTOPRAZOLE 40 MG TABLET PO SCH (11:55)
[2022-12-21] MEDS: amLODIPine BESYLATE 10 MG TABLET (FP) PO SCH (11:55)
[2022-12-21] MEDS: DONEPEZIL HCL 10 MG TABLET (FP) PO SCH (18:22)
[2022-12-22] MEDS: POLYETHYLENE GLYCOL (HEALTHYLAX) 3350 17 GM PACKET PO SCH ×3 (06:52→22:18)
[2022-12-22 08:51] LABS: HEMATOCRIT 32.1 % (32.4-45.2); HEMOGLOBIN 10.8 GM/dL (10.7-15.3); LYMPH % 29.9 % (8-40); MCH 28.5 pg (25.7-33.7); MCHC 33.6 g/dl (32.0-36.0); MEAN CELL VOLUME 84.7 fl (80-96); MONO % 8.8 % (3.8-10.2); NEUT % 56.3 % (42.8-82.8); PLATELET COUNT 255 10^3/uL (134-434); RBC 3.79 M/mm3 (3.60-5.2); RDW 13.4 % (11.6-15.6)
[2022-12-22] MEDS: PANTOPRAZOLE 40 MG TABLET PO SCH (09:29)
[2022-12-22] MEDS: amLODIPine BESYLATE 10 MG TABLET (FP) PO SCH (09:29)
[2022-12-22] MEDS: AMINO ACIDS/PROTEIN HYDROLYS 30 ML LIQUID.PKT PO SCH ×2 (09:29→16:36)
[2022-12-22 09:42] LABS: ALBUMIN 3.2 g/dl (3.4-5.0); BLOOD UREA NITROGEN 18.7 mg/dL (7-18); CALCIUM 9.3 mg/dL (8.5-10.1)
[2022-12-22 09:44] LABS: CREATININE 1.2 mg/dL (0.55-1.3)
[2022-12-22] MEDS: MEMANTINE HCL 5 MG TABLET (UD) PO SCH ×2 (09:44→22:19)
[2022-12-22 09:45] LABS: BILIRUBIN,TOTAL 0.7 mg/dL (0.2-1); TOT PROT 6.7 g/dl (6.4-8.2)
[2022-12-22] MEDS ORDERED: GABAPENTIN 100 MG CAPSULE PO SCH (09:45)
[2022-12-22] MEDS ORDERED: ACETAMINOPHEN 1000 MG/100 ML BAG IVPB ONE (09:45)
[2022-12-22 09:48] LABS: MAGNESIUM 1.8 mg/dL (1.8-2.4)
[2022-12-22] MEDS: DONEPEZIL HCL 10 MG TABLET (FP) PO SCH (17:13)
[2022-12-23 04:18] VITALS: BP 119/64; PULSE 69; TEMP 98.1
[2022-12-23] MEDS: POLYETHYLENE GLYCOL (HEALTHYLAX) 3350 17 GM PACKET PO SCH (06:14)
[2022-12-23] MEDS: amLODIPine BESYLATE 10 MG TABLET (FP) PO SCH (10:27)
[2022-12-23] MEDS: PANTOPRAZOLE 40 MG TABLET PO SCH (10:27)
[2022-12-23] MEDS: AMINO ACIDS/PROTEIN HYDROLYS 30 ML LIQUID.PKT PO SCH (10:27)
[2022-12-23] MEDS: MEMANTINE HCL 5 MG TABLET (UD) PO SCH (10:31)
[2022-12-23 10:44] VITALS: BMI 15.7
== END 2022-12-23 11:17 | disposition home health service (06) ==
LOC: JER 10:59 → JERBED 16:46 → J8W 21:41
PROVIDERS: ADMIT Internal Medicine; ATTEND Nurse Practitioner Family
PROC: 3E033GC Introduction of Other Therapeutic Substance into Peripheral Vein, Percutaneous Approach (ICD-10-PCS; principal; 2022-12-18)
DX: I13.10 Hypertensive heart and chronic kidney disease without heart failure, with stage 1 through stage 4 chronic kidney disease, or unspecified chronic kidney disease (principal); F03.90 Unspecified dementia, unspecified severity, without behavioral disturbance, psychotic disturbance, mood disturbance, and anxiety; Z29.8 Encounter for other specified prophylactic measures; K62.5 Hemorrhage of anus and rectum; E11.22 Type 2 diabetes mellitus with diabetic chronic kidney disease; N18.9 Chronic kidney disease, unspecified; G93.41 Metabolic encephalopathy; N94.89 Other specified conditions associated with female genital organs and menstrual cycle; E43 Unspecified severe protein-calorie malnutrition; Z88.8 Allergy status to other drugs, medicaments and biological substances
CPT/HCPCS: 0241U-QW; 36415; 74174-TC; 76856-TC; 80048; 80053; 82272; 83605; 83735; 84132; 84484; 85025; 85610; 85730; 86850; 86900; 86901; 93005; 93010; 93306-TC; 96365; 96367; 97116-GP; 97161-GP; 99285-25; G0378

== ENCOUNTER 2023-09-24 20:04 | Inpatient (IN) | payer OTHER ==
[2023-09-24 21:59] LABS: INR 0.99 (0.83-1.09); PROTHROMBIN TIME (PATIENT) 11.5 SEC (9.7-13.0)
[2023-09-24 22:06] LABS: BASO % 0.6 % (0-2.0); EOS % 3.6 % (0-4.5); HEMATOCRIT 34.1 % (32.4-45.2); HEMOGLOBIN 10.9 GM/dL (10.7-15.3); LYMPH % 27.3 % (8-40); MCH 26.2 pg (25.7-33.7); MCHC 31.9 g/dl (32.0-36.0); MEAN CELL VOLUME 82.2 fl (80-96); MONO % 6.2 % (3.8-10.2); NEUT % 62.3 % (42.8-82.8); PLATELET COUNT 292 10^3/uL (134-434); RBC 4.15 M/mm3 (3.60-5.2); RDW 14.5 % (11.6-15.6); WHITE BLOOD COUNT 8.4 K/mm3 (4.0-10.0)
[2023-09-24 22:09] LABS: POTASSIUM 4.2 mmol/L (3.5-5.1)
[2023-09-24 22:11] LABS: ALBUMIN 3.7 g/dl (3.4-5.0); BLOOD UREA NITROGEN 28.4 mg/dL (7-18); CALCIUM 7.6 mg/dL (8.5-10.1)
[2023-09-24 22:14] LABS: CREATININE 1.6 mg/dL (0.55-1.3)
[2023-09-24 22:16] LABS: BILIRUBIN,TOTAL 0.3 mg/dL (0.2-1); TOT PROT 7.5 g/dl (6.4-8.2)
[2023-09-24] MEDS ORDERED: SODIUM CHLORIDE 0.9% 500 ML INFUS.BAG IV ONE (22:45)
[2023-09-25] MEDS ORDERED: HEPARIN NA (PORCINE) 5,000 UNITS/ML 1ML VIAL SQ SCH (06:00)
[2023-09-25] MEDS: SODIUM CHLORIDE 1,000 ML IV SCH ×2 (07:56→17:09)
[2023-09-25] MEDS: INSULIN SLIDING SCALE (NOVOLOG) 1 VIAL SQ SCH ×3 (07:57→16:22)
[2023-09-25] MEDS: PANTOPRAZOLE SODIUM 40 MG VIAL IVPUSH SCH (09:28)
[2023-09-25 10:53] LABS: POTASSIUM 3.6 mmol/L (3.5-5.1)
[2023-09-25 10:55] LABS: BASO % 0.9 % (0-2.0); EOS % 3.3 % (0-4.5); HEMATOCRIT 26.7 % (32.4-45.2); LYMPH % 22.9 % (8-40); MCH 27.2 pg (25.7-33.7); MCHC 33.8 g/dl (32.0-36.0); MEAN CELL VOLUME 80.7 fl (80-96); MEAN PLT VOLUME 7.3 fl (7.5-11.1); MONO % 6.8 % (3.8-10.2); NEUT % 66.1 % (42.8-82.8); PLATELET COUNT 240 10^3/uL (134-434); RBC 3.31 M/mm3 (3.60-5.2); RDW 14.4 % (11.6-15.6); WHITE BLOOD COUNT 7.1 K/mm3 (4.0-10.0)
[2023-09-25 10:56] LABS: CALCIUM 7.8 mg/dL (8.5-10.1)
[2023-09-25 10:57] LABS: ALBUMIN 3.2 g/dl (3.4-5.0); BLOOD UREA NITROGEN 24.5 mg/dL (7-18); MAGNESIUM 1.8 mg/dL (1.8-2.4)
[2023-09-25 11:00] LABS: CREATININE 1.3 mg/dL (0.55-1.3); PHOSPHOROUS 3.8 mg/dL (2.5-4.9)
[2023-09-25 11:01] LABS: BILIRUBIN,TOTAL 0.4 mg/dL (0.2-1); TOT PROT 6.4 g/dl (6.4-8.2)
[2023-09-25] MEDS ORDERED: INSULIN (NOVOLOG) ASPART 100 UNITS/ML 10ML VIAL ONE (16:22)
[2023-09-25 20:56] LABS: IRON SERUM 39 ug/dL (50-175); TOTAL IRON BINDING CAPACITY 253 ug/dL (250-450)
[2023-09-25] MEDS ORDERED: QUEtiapine FUMARATE 25 MG TABLET PO SCH ×2 (22:00)
[2023-09-25] MEDS: MEMANTINE HCL 5 MG TABLET (UD) PO SCH (23:54)
[2023-09-25] MEDS: CINACALCET HCL 30 MG TAB (FP) PO SCH (23:54)
[2023-09-25] MEDS: ATORVASTATIN CA 10 MG TABLET (FP) PO SCH (23:54)
[2023-09-26] MEDS: SODIUM CHLORIDE 1,000 ML IV SCH (06:57)
[2023-09-26 08:58] LABS: HEMATOCRIT 25.3 % (32.4-45.2); HEMOGLOBIN 8.3 GM/dL (10.7-15.3); MCH 26.9 pg (25.7-33.7); MCHC 32.9 g/dl (32.0-36.0); MEAN CELL VOLUME 81.7 fl (80-96); MEAN PLT VOLUME 7.3 fl (7.5-11.1); PLATELET COUNT 246 10^3/uL (134-434); RDW 14.3 % (11.6-15.6); WHITE BLOOD COUNT 7.7 K/mm3 (4.0-10.0)
[2023-09-26 09:27] LABS: POTASSIUM 3.8 mmol/L (3.5-5.1)
[2023-09-26] MEDS: PANTOPRAZOLE SODIUM 40 MG VIAL IVPUSH SCH (09:42)
[2023-09-26] MEDS: MEMANTINE HCL 5 MG TABLET (UD) PO SCH ×2 (09:42→21:33)
[2023-09-26] MEDS: CINACALCET HCL 30 MG TAB (FP) PO SCH ×2 (09:42→21:34)
[2023-09-26] MEDS: DONEPEZIL HCL 10 MG TABLET (FP) PO SCH (09:42)
[2023-09-26 10:16] LABS: CALCIUM 7.9 mg/dL (8.5-10.1)
[2023-09-26 10:17] LABS: BLOOD UREA NITROGEN 22.8 mg/dL (7-18)
[2023-09-26 10:19] LABS: CREATININE 1.3 mg/dL (0.55-1.3)
[2023-09-26] MEDS: QUEtiapine FUMARATE 25 MG TABLET PO SCH (21:33)
[2023-09-26] MEDS: ATORVASTATIN CA 10 MG TABLET (FP) PO SCH (21:33)
[2023-09-26 23:34] VITALS: BMI 18.2
[2023-09-27 09:23] LABS: HEMOGLOBIN 8.2 GM/dL (10.7-15.3); MCH 27.2 pg (25.7-33.7); MCHC 32.9 g/dl (32.0-36.0); MEAN CELL VOLUME 82.5 fl (80-96); MEAN PLT VOLUME 7.1 fl (7.5-11.1); PLATELET COUNT 244 10^3/uL (134-434); RBC 3.03 M/mm3 (3.60-5.2); RDW 14.5 % (11.6-15.6); WHITE BLOOD COUNT 7.9 K/mm3 (4.0-10.0)
[2023-09-27] MEDS: CINACALCET HCL 30 MG TAB (FP) PO SCH (09:28)
[2023-09-27] MEDS: MEMANTINE HCL 5 MG TABLET (UD) PO SCH (09:28)
[2023-09-27] MEDS: DONEPEZIL HCL 10 MG TABLET (FP) PO SCH (09:28)
[2023-09-27] MEDS: PANTOPRAZOLE SODIUM 40 MG VIAL IVPUSH SCH ×2 (09:28→09:31)
[2023-09-27] MEDS: PANTOPRAZOLE 40 MG TABLET PO SCH (10:30)
[2023-09-27 12:23] LABS: POTASSIUM 3.8 mmol/L (3.5-5.1)
[2023-09-27 12:24] LABS: BLOOD UREA NITROGEN 20.8 mg/dL (7-18); CALCIUM 7.7 mg/dL (8.5-10.1)
[2023-09-27 12:27] LABS: CREATININE 1.5 mg/dL (0.55-1.3)
[2023-09-27] MEDS ORDERED: LORazepam 1 MG TABLET PO PRN (16:15)
[2023-09-27] MEDS: ATORVASTATIN CA 10 MG TABLET (FP) PO SCH (22:10)
[2023-09-27] MEDS: QUEtiapine FUMARATE 25 MG TABLET PO SCH (22:10)
[2023-09-27] MEDS: MEMANTINE HCL 10 MG TABLET (FP) PO SCH (22:12)
[2023-09-28] MEDS: CINACALCET HCL 30 MG TAB (FP) PO SCH ×3 (02:47→22:37)
[2023-09-28] MEDS: DONEPEZIL HCL 10 MG TABLET (FP) PO SCH (10:13)
[2023-09-28] MEDS: MEMANTINE HCL 10 MG TABLET (FP) PO SCH ×2 (10:13→22:30)
[2023-09-28] MEDS: PANTOPRAZOLE 40 MG TABLET PO SCH (10:13)
[2023-09-28 20:24] LABS: BASO % 0.4 % (0-2.0); EOS % 2.5 % (0-4.5); LYMPH % 22.1 % (8-40); MCH 26.9 pg (25.7-33.7); MCHC 33.2 g/dl (32.0-36.0); MEAN PLT VOLUME 7.1 fl (7.5-11.1); MONO % 7.6 % (3.8-10.2); NEUT % 67.4 % (42.8-82.8); PLATELET COUNT 253 10^3/uL (134-434); RBC 2.96 M/mm3 (3.60-5.2); RDW 14.8 % (11.6-15.6); WHITE BLOOD COUNT 8.8 K/mm3 (4.0-10.0)
[2023-09-28] MEDS: ATORVASTATIN CA 10 MG TABLET (FP) PO SCH (22:37)
[2023-09-28] MEDS: QUEtiapine FUMARATE 25 MG TABLET PO SCH (22:37)
[2023-09-29 09:11] LABS: BASO % 0.7 % (0-2.0); EOS % 2.7 % (0-4.5); HEMATOCRIT 23.1 % (32.4-45.2); HEMOGLOBIN 7.8 GM/dL (10.7-15.3); LYMPH % 29.7 % (8-40); MCH 27.1 pg (25.7-33.7); MCHC 33.7 g/dl (32.0-36.0); MEAN CELL VOLUME 80.5 fl (80-96); MEAN PLT VOLUME 7.3 fl (7.5-11.1); MONO % 7.5 % (3.8-10.2); NEUT % 59.4 % (42.8-82.8); PLATELET COUNT 252 10^3/uL (134-434); RBC 2.87 M/mm3 (3.60-5.2); RDW 14.8 % (11.6-15.6); WHITE BLOOD COUNT 7.4 K/mm3 (4.0-10.0)
[2023-09-29 09:30] LABS: POTASSIUM 3.9 mmol/L (3.5-5.1)
[2023-09-29 09:33] LABS: CALCIUM 7.5 mg/dL (8.5-10.1)
[2023-09-29 09:35] LABS: BLOOD UREA NITROGEN 22.7 mg/dL (7-18)
[2023-09-29 09:36] LABS: CREATININE 1.5 mg/dL (0.55-1.3)
[2023-09-29 09:38] LABS: BILIRUBIN,TOTAL 0.4 mg/dL (0.2-1); TOT PROT 6.2 g/dl (6.4-8.2)
[2023-09-29] MEDS: MEMANTINE HCL 10 MG TABLET (FP) PO SCH ×2 (10:02→21:37)
[2023-09-29] MEDS: POLYETHYLENE GLYCOL (HEALTHYLAX) 3350 17 GM PACKET PO SCH (10:02)
[2023-09-29] MEDS: PANTOPRAZOLE 40 MG TABLET PO SCH (10:02)
[2023-09-29] MEDS: DONEPEZIL HCL 10 MG TABLET (FP) PO SCH (10:02)
[2023-09-29] MEDS: CINACALCET HCL 30 MG TAB (FP) PO SCH ×2 (10:33→21:37)
[2023-09-29] MEDS: QUEtiapine FUMARATE 25 MG TABLET PO SCH (21:36)
[2023-09-29] MEDS: ATORVASTATIN CA 10 MG TABLET (FP) PO SCH (21:36)
[2023-09-30] MEDS: DONEPEZIL HCL 10 MG TABLET (FP) PO SCH (10:09)
[2023-09-30] MEDS: MEMANTINE HCL 10 MG TABLET (FP) PO SCH ×2 (10:09→22:14)
[2023-09-30] MEDS: POLYETHYLENE GLYCOL (HEALTHYLAX) 3350 17 GM PACKET PO SCH (10:09)
[2023-09-30] MEDS: CINACALCET HCL 30 MG TAB (FP) PO SCH ×2 (10:09→22:15)
[2023-09-30] MEDS: amLODIPine BESYLATE 10 MG TABLET (FP) PO SCH (10:09)
[2023-09-30] MEDS: PANTOPRAZOLE 40 MG TABLET PO SCH (10:09)
[2023-09-30 10:40] LABS: BASO % 0.7 % (0-2.0); EOS % 3.8 % (0-4.5); HEMATOCRIT 23.1 % (32.4-45.2); HEMOGLOBIN 7.5 GM/dL (10.7-15.3); LYMPH % 28.1 % (8-40); MCH 26.9 pg (25.7-33.7); MCHC 32.5 g/dl (32.0-36.0); MEAN CELL VOLUME 82.9 fl (80-96); MEAN PLT VOLUME 7.4 fl (7.5-11.1); MONO % 7.7 % (3.8-10.2); NEUT % 59.7 % (42.8-82.8); PLATELET COUNT 269 10^3/uL (134-434); RBC 2.79 M/mm3 (3.60-5.2); RDW 14.8 % (11.6-15.6); WHITE BLOOD COUNT 7.5 K/mm3 (4.0-10.0)
[2023-09-30 11:04] LABS: POTASSIUM 4.4 mmol/L (3.5-5.1)
[2023-09-30 11:35] LABS: BLOOD UREA NITROGEN 30.3 mg/dL (7-18); MAGNESIUM 2.1 mg/dL (1.8-2.4)
[2023-09-30 11:39] LABS: CREATININE 1.4 mg/dL (0.55-1.3); PHOSPHOROUS 4.1 mg/dL (2.5-4.9)
[2023-09-30] MEDS: QUEtiapine FUMARATE 25 MG TABLET PO SCH (22:14)
[2023-09-30] MEDS: ATORVASTATIN CA 10 MG TABLET (FP) PO SCH (22:15)
[2023-10-01 09:46] LABS: BASO % 0.7 % (0-2.0); EOS % 2.7 % (0-4.5); HEMATOCRIT 27.4 % (32.4-45.2); HEMOGLOBIN 8.8 GM/dL (10.7-15.3); LYMPH % 30.5 % (8-40); MCH 26.7 pg (25.7-33.7); MCHC 32.2 g/dl (32.0-36.0); MEAN CELL VOLUME 82.9 fl (80-96); MEAN PLT VOLUME 7.3 fl (7.5-11.1); MONO % 6.2 % (3.8-10.2); NEUT % 59.9 % (42.8-82.8); PLATELET COUNT 348 10^3/uL (134-434); RDW 14.9 % (11.6-15.6); WHITE BLOOD COUNT 9.1 K/mm3 (4.0-10.0)
[2023-10-01] MEDS: amLODIPine BESYLATE 10 MG TABLET (FP) PO SCH (09:46)
[2023-10-01] MEDS: CINACALCET HCL 30 MG TAB (FP) PO SCH ×2 (09:46→21:30)
[2023-10-01] MEDS: PANTOPRAZOLE 40 MG TABLET PO SCH (09:46)
[2023-10-01] MEDS: MEMANTINE HCL 10 MG TABLET (FP) PO SCH ×2 (09:46→21:30)
[2023-10-01] MEDS: POLYETHYLENE GLYCOL (HEALTHYLAX) 3350 17 GM PACKET PO SCH (09:46)
[2023-10-01] MEDS: DONEPEZIL HCL 10 MG TABLET (FP) PO SCH (09:46)
[2023-10-01 10:05] LABS: POTASSIUM 3.7 mmol/L (3.5-5.1)
[2023-10-01 10:19] LABS: CALCIUM 8.4 mg/dL (8.5-10.1)
[2023-10-01 10:20] LABS: ALBUMIN 3.5 g/dl (3.4-5.0); BLOOD UREA NITROGEN 26.4 mg/dL (7-18); MAGNESIUM 2.1 mg/dL (1.8-2.4)
[2023-10-01 10:23] LABS: PHOSPHOROUS 4.5 mg/dL (2.5-4.9)
[2023-10-01 10:24] LABS: BILIRUBIN,TOTAL 0.4 mg/dL (0.2-1); CREATININE 1.4 mg/dL (0.55-1.3); TOT PROT 7.3 g/dl (6.4-8.2)
[2023-10-01] MEDS ORDERED: IRON SUCROSE INJECTION 200 MG in SODIUM CHLORIDE 90 ML IVPB ONE (13:00)
[2023-10-01] MEDS: ATORVASTATIN CA 10 MG TABLET (FP) PO SCH (21:29)
[2023-10-01] MEDS: QUEtiapine FUMARATE 25 MG TABLET PO SCH (21:29)
[2023-10-02 08:50] LABS: HEMATOCRIT 25.3 % (32.4-45.2); HEMOGLOBIN 8.3 GM/dL (10.7-15.3); MCH 26.9 pg (25.7-33.7); MCHC 32.7 g/dl (32.0-36.0); MEAN CELL VOLUME 82.4 fl (80-96); MEAN PLT VOLUME 7.4 fl (7.5-11.1); PLATELET COUNT 337 10^3/uL (134-434); RBC 3.07 M/mm3 (3.60-5.2); RDW 14.7 % (11.6-15.6); WHITE BLOOD COUNT 8.4 K/mm3 (4.0-10.0)
[2023-10-02 09:16] LABS: POTASSIUM 4.1 mmol/L (3.5-5.1)
[2023-10-02 09:33] LABS: BLOOD UREA NITROGEN 37.6 mg/dL (7-18); CALCIUM 8.2 mg/dL (8.5-10.1)
[2023-10-02 09:35] LABS: CREATININE 1.7 mg/dL (0.55-1.3)
[2023-10-02] MEDS: amLODIPine BESYLATE 10 MG TABLET (FP) PO SCH (09:53)
[2023-10-02] MEDS: CINACALCET HCL 30 MG TAB (FP) PO SCH ×2 (09:53→21:16)
[2023-10-02] MEDS: DONEPEZIL HCL 10 MG TABLET (FP) PO SCH (09:53)
[2023-10-02] MEDS: POLYETHYLENE GLYCOL (HEALTHYLAX) 3350 17 GM PACKET PO SCH ×2 (09:53→09:58)
[2023-10-02] MEDS: PANTOPRAZOLE 40 MG TABLET PO SCH (09:53)
[2023-10-02] MEDS: MEMANTINE HCL 10 MG TABLET (FP) PO SCH ×2 (09:53→21:17)
[2023-10-02] MEDS: ATORVASTATIN CA 10 MG TABLET (FP) PO SCH (21:16)
[2023-10-02] MEDS: QUEtiapine FUMARATE 25 MG TABLET PO SCH (21:16)
[2023-10-02] MEDS: FERROUS SO4 325 MG TABLET (FP) PO SCH (21:16)
[2023-10-03] MEDS: FOLIC ACID 1 MG TABLET (FP) PO SCH (09:25)
[2023-10-03] MEDS: ASCORBIC ACID 250 MG TABLET (FP) PO SCH (09:25)
[2023-10-03] MEDS: POLYETHYLENE GLYCOL (HEALTHYLAX) 3350 17 GM PACKET PO SCH (09:25)
[2023-10-03] MEDS: DONEPEZIL HCL 10 MG TABLET (FP) PO SCH (09:25)
[2023-10-03] MEDS: amLODIPine BESYLATE 10 MG TABLET (FP) PO SCH (09:25)
[2023-10-03] MEDS: MEMANTINE HCL 10 MG TABLET (FP) PO SCH ×2 (09:25→21:17)
[2023-10-03] MEDS: FERROUS SO4 325 MG TABLET (FP) PO SCH ×2 (09:25→21:17)
[2023-10-03] MEDS: PANTOPRAZOLE 40 MG TABLET PO SCH (09:25)
[2023-10-03] MEDS: CINACALCET HCL 30 MG TAB (FP) PO SCH ×2 (09:25→21:17)
[2023-10-03 09:42] LABS: BASO % 0.8 % (0-2.0); EOS % 3.3 % (0-4.5); HEMATOCRIT 26.2 % (32.4-45.2); HEMOGLOBIN 8.7 GM/dL (10.7-15.3); MCHC 33.2 g/dl (32.0-36.0); MEAN CELL VOLUME 81.2 fl (80-96); MEAN PLT VOLUME 7.3 fl (7.5-11.1); MONO % 6.6 % (3.8-10.2); NEUT % 59.3 % (42.8-82.8); PLATELET COUNT 377 10^3/uL (134-434); RBC 3.23 M/mm3 (3.60-5.2); WHITE BLOOD COUNT 8.7 K/mm3 (4.0-10.0)
[2023-10-03 10:02] LABS: CALCIUM 8.1 mg/dL (8.5-10.1)
[2023-10-03 10:03] LABS: ALBUMIN 3.8 g/dl (3.4-5.0); BLOOD UREA NITROGEN 31.3 mg/dL (7-18); MAGNESIUM 2.1 mg/dL (1.8-2.4)
[2023-10-03 10:06] LABS: CREATININE 1.7 mg/dL (0.55-1.3); PHOSPHOROUS 4.7 mg/dL (2.5-4.9)
[2023-10-03 10:07] LABS: TOT PROT 7.7 g/dl (6.4-8.2)
[2023-10-03 10:08] LABS: BILIRUBIN,TOTAL 0.4 mg/dL (0.2-1)
[2023-10-03] MEDS ORDERED: ACETAMINOPHEN 325 MG TABLET (FP) PO PRN (13:30)
[2023-10-03] MEDS: QUEtiapine FUMARATE 25 MG TABLET PO SCH (21:17)
[2023-10-03] MEDS: ATORVASTATIN CA 10 MG TABLET (FP) PO SCH (21:17)
[2023-10-03 22:19] VITALS: RESP 18
[2023-10-04] MEDS ORDERED: MAGNESIUM CITRATE 300 ML BOTTLE PO ONE (06:00)
[2023-10-04] MEDS ORDERED: SODIUM PHOSPHATE/NA BIPHOS 133 ML ENEMA RC ONE (06:00)
[2023-10-04 08:35] LABS: BASO % 0.9 % (0-2.0); EOS % 2.8 % (0-4.5); HEMOGLOBIN 9.4 GM/dL (10.7-15.3); LYMPH % 30.7 % (8-40); MCH 27.1 pg (25.7-33.7); MCHC 33.4 g/dl (32.0-36.0); MEAN CELL VOLUME 81.3 fl (80-96); MONO % 5.7 % (3.8-10.2); NEUT % 59.9 % (42.8-82.8); PLATELET COUNT 399 10^3/uL (134-434); RBC 3.45 M/mm3 (3.60-5.2); RDW 14.9 % (11.6-15.6); WHITE BLOOD COUNT 9.9 K/mm3 (4.0-10.0)
[2023-10-04 08:36] LABS: POTASSIUM 4.2 mmol/L (3.5-5.1)
[2023-10-04 08:38] LABS: BLOOD UREA NITROGEN 36.6 mg/dL (7-18)
[2023-10-04 08:39] LABS: CALCIUM 8.4 mg/dL (8.5-10.1)
[2023-10-04 08:40] LABS: ALBUMIN 3.6 g/dl (3.4-5.0); MAGNESIUM 2.3 mg/dL (1.8-2.4)
[2023-10-04 08:42] LABS: CREATININE 1.5 mg/dL (0.55-1.3)
[2023-10-04 08:43] LABS: BILIRUBIN,TOTAL 0.3 mg/dL (0.2-1); TOT PROT 7.6 g/dl (6.4-8.2)
[2023-10-04] MEDS: CINACALCET HCL 30 MG TAB (FP) PO SCH ×2 (09:48→21:52)
[2023-10-04] MEDS: PANTOPRAZOLE 40 MG TABLET PO SCH (09:49)
[2023-10-04] MEDS: MEMANTINE HCL 10 MG TABLET (FP) PO SCH ×2 (09:49→21:52)
[2023-10-04] MEDS: amLODIPine BESYLATE 10 MG TABLET (FP) PO SCH (09:49)
[2023-10-04] MEDS: ASCORBIC ACID 250 MG TABLET (FP) PO SCH (09:49)
[2023-10-04] MEDS: FERROUS SO4 325 MG TABLET (FP) PO SCH ×2 (09:49→21:51)
[2023-10-04] MEDS: DONEPEZIL HCL 10 MG TABLET (FP) PO SCH (09:49)
[2023-10-04] MEDS: POLYETHYLENE GLYCOL (HEALTHYLAX) 3350 17 GM PACKET PO SCH (09:50)
[2023-10-04] MEDS: FOLIC ACID 1 MG TABLET (FP) PO SCH (09:50)
[2023-10-04] MEDS: QUEtiapine FUMARATE 25 MG TABLET PO SCH (21:52)
[2023-10-04] MEDS: ATORVASTATIN CA 10 MG TABLET (FP) PO SCH (21:52)
[2023-10-05] MEDS ORDERED: MAGNESIUM CITRATE 300 ML BOTTLE PO ONE (06:00)
[2023-10-05] MEDS ORDERED: SODIUM PHOSPHATE/NA BIPHOS 133 ML ENEMA PR ONE (06:00)
[2023-10-05] MEDS ORDERED: SODIUM PHOSPHATE/NA BIPHOS 133 ML ENEMA RC ONE (06:00)
[2023-10-05] MEDS: FOLIC ACID 1 MG TABLET (FP) PO SCH (09:40)
[2023-10-05] MEDS: POLYETHYLENE GLYCOL (HEALTHYLAX) 3350 17 GM PACKET PO SCH (09:40)
[2023-10-05] MEDS: MEMANTINE HCL 10 MG TABLET (FP) PO SCH ×2 (09:41→21:41)
[2023-10-05] MEDS: PANTOPRAZOLE 40 MG TABLET PO SCH (09:41)
[2023-10-05] MEDS: amLODIPine BESYLATE 10 MG TABLET (FP) PO SCH (09:41)
[2023-10-05] MEDS: FERROUS SO4 325 MG TABLET (FP) PO SCH ×2 (09:41→21:41)
[2023-10-05] MEDS: DONEPEZIL HCL 10 MG TABLET (FP) PO SCH (09:41)
[2023-10-05] MEDS: ASCORBIC ACID 250 MG TABLET (FP) PO SCH (09:41)
[2023-10-05 09:47] LABS: HEMATOCRIT 28.7 % (32.4-45.2); HEMOGLOBIN 9.1 GM/dL (10.7-15.3); MCH 26.6 pg (25.7-33.7); MCHC 31.8 g/dl (32.0-36.0); MEAN CELL VOLUME 83.8 fl (80-96); MEAN PLT VOLUME 7.1 fl (7.5-11.1); PLATELET COUNT 467 10^3/uL (134-434); RBC 3.43 M/mm3 (3.60-5.2); RDW 14.9 % (11.6-15.6); WHITE BLOOD COUNT 8.5 K/mm3 (4.0-10.0)
[2023-10-05 10:11] LABS: POTASSIUM 3.8 mmol/L (3.5-5.1)
[2023-10-05 10:15] LABS: CALCIUM 8.7 mg/dL (8.5-10.1)
[2023-10-05 10:16] LABS: BLOOD UREA NITROGEN 25.8 mg/dL (7-18)
[2023-10-05 10:19] LABS: CREATININE 1.6 mg/dL (0.55-1.3)
[2023-10-05] MEDS: CINACALCET HCL 30 MG TAB (FP) PO SCH ×2 (16:54→21:39)
[2023-10-05] MEDS: ATORVASTATIN CA 10 MG TABLET (FP) PO SCH (21:41)
[2023-10-05] MEDS: QUEtiapine FUMARATE 25 MG TABLET PO SCH (21:41)
[2023-10-05] MEDS: INSULIN SLIDING SCALE (NOVOLOG) 1 VIAL SQ SCH (22:09)
[2023-10-06] MEDS: INSULIN SLIDING SCALE (NOVOLOG) 1 VIAL SQ SCH ×2 (06:39→11:17)
[2023-10-06 08:46] VITALS: BP 144/64; PULSE 87; TEMP 98
[2023-10-06] MEDS: MEMANTINE HCL 10 MG TABLET (FP) PO SCH (09:58)
[2023-10-06] MEDS: FOLIC ACID 1 MG TABLET (FP) PO SCH (09:58)
[2023-10-06] MEDS: DONEPEZIL HCL 10 MG TABLET (FP) PO SCH (09:59)
[2023-10-06] MEDS: FERROUS SO4 325 MG TABLET (FP) PO SCH (09:59)
[2023-10-06] MEDS: amLODIPine BESYLATE 10 MG TABLET (FP) PO SCH (09:59)
[2023-10-06] MEDS: PANTOPRAZOLE 40 MG TABLET PO SCH (09:59)
[2023-10-06] MEDS: ASCORBIC ACID 250 MG TABLET (FP) PO SCH (09:59)
[2023-10-06] MEDS: POLYETHYLENE GLYCOL (HEALTHYLAX) 3350 17 GM PACKET PO SCH (10:00)
[2023-10-06] MEDS: CINACALCET HCL 30 MG TAB (FP) PO SCH (10:01)
== END 2023-10-06 11:20 | disposition home or self-care (01) | DRG 377 ==
LOC: JER 20:04 → JERBED 23:46 → J6S 09-25 05:28 → OBSVTOIN 09-26 19:12
PROVIDERS: ADMIT Internal Medicine; ATTEND Internal Medicine
DX: K62.5 Hemorrhage of anus and rectum (principal); E43 Unspecified severe protein-calorie malnutrition; D62 Acute posthemorrhagic anemia; F03.C11 Unspecified dementia, severe, with agitation; Z68.1 Body mass index [BMI] 19.9 or less, adult; I12.9 Hypertensive chronic kidney disease with stage 1 through stage 4 chronic kidney disease, or unspecified chronic kidney disease; E11.22 Type 2 diabetes mellitus with diabetic chronic kidney disease; N18.9 Chronic kidney disease, unspecified; E78.5 Hyperlipidemia, unspecified; N93.9 Abnormal uterine and vaginal bleeding, unspecified; D25.9 Leiomyoma of uterus, unspecified; I44.0 Atrioventricular block, first degree
CPT/HCPCS: 36415; 76830-TC; 80048; 80053; 82272; 82550; 82553; 82607; 82728; 82746; 82962; 83036; 83540; 83550; 83735; 84100; 85025; 85027; 85045; 85610; 85730; 86850; 86900; 86901; 93005; 93010; 99285-25; G0378; J1756

== ENCOUNTER 2024-01-12 09:42 | Observation (INO) | payer OTHER ==
[2024-01-12 10:32] VITALS: BMI 20.3
[2024-01-12] MEDS: HALOPERIDOL 5 MG TABLET PO ONE (11:17)
[2024-01-12 12:37] LABS: BASO % 0.8 % (0-2.0); EOS % 1.3 % (0-4.5); HEMATOCRIT 36.5 % (32.4-45.2); HEMOGLOBIN 12.2 GM/dL (10.7-15.3); LYMPH % 23.1 % (8-40); MCH 26.4 pg (25.7-33.7); MCHC 33.3 g/dl (32.0-36.0); MEAN CELL VOLUME 79.3 fl (80-96); MEAN PLT VOLUME 7.1 fl (7.5-11.1); MONO % 6.9 % (3.8-10.2); NEUT % 67.9 % (42.8-82.8); PLATELET COUNT 305 10^3/uL (134-434); RBC 4.61 M/mm3 (3.60-5.2); RDW 18.1 % (11.6-15.6); WHITE BLOOD COUNT 9.4 K/mm3 (4.0-10.0)
[2024-01-12 13:05] LABS: ALBUMIN 3.3 g/dl (3.4-5.0); BLOOD UREA NITROGEN 18.3 mg/dL (7-18); CALCIUM 8.9 mg/dL (8.5-10.1)
[2024-01-12 13:08] LABS: CREATININE 1.3 mg/dL (0.55-1.3)
[2024-01-12 13:10] LABS: BILIRUBIN,TOTAL 0.3 mg/dL (0.2-1); TOT PROT 7.3 g/dl (6.4-8.2)
[2024-01-12] MEDS: SODIUM CHLORIDE 1,000 ML IV SCH (15:07)
[2024-01-12] MEDS ORDERED: HALOPERIDOL 1 MG TABLET PO PRN (16:05)
[2024-01-12] MEDS ORDERED: HALOPERIDOL 0.5 MG TABLET PO PRN (17:43)
[2024-01-12] MEDS ORDERED: risperiDONE 0.25 MG TABLET PO SCH (22:00)
[2024-01-12] MEDS ORDERED: risperiDONE 0.5 MG TABLET PO SCH (22:00)
[2024-01-12] MEDS ORDERED: risperiDONE 0.5 MG TABLET ONE (22:45)
[2024-01-12] MEDS ORDERED: ATORVASTATIN CA 10 MG TABLET (FP) ONE (22:45)
[2024-01-12] MEDS: CINACALCET HCL 30 MG TAB (FP) PO SCH (23:07)
[2024-01-12] MEDS: ATORVASTATIN CA 10 MG TABLET (FP) PO SCH (23:07)
[2024-01-12] MEDS: risperiDONE 0.25 MG TABLET PO SCH (23:07)
[2024-01-13 08:05] LABS: HEMATOCRIT 38.2 % (32.4-45.2); HEMOGLOBIN 12.4 GM/dL (10.7-15.3); MCHC 32.5 g/dl (32.0-36.0); MEAN CELL VOLUME 79.8 fl (80-96); MEAN PLT VOLUME 7.6 fl (7.5-11.1); PLATELET COUNT 303 10^3/uL (134-434); RBC 4.78 M/mm3 (3.60-5.2); RDW 18.2 % (11.6-15.6); WHITE BLOOD COUNT 7.2 K/mm3 (4.0-10.0)
[2024-01-13 08:23] LABS: CALCIUM 8.6 mg/dL (8.5-10.1)
[2024-01-13 08:24] LABS: BLOOD UREA NITROGEN 11.6 mg/dL (7-18)
[2024-01-13 08:27] LABS: CREATININE 1.1 mg/dL (0.55-1.3); PHOSPHOROUS 3.9 mg/dL (2.5-4.9)
[2024-01-13] MEDS: amLODIPine BESYLATE 10 MG TABLET (FP) PO SCH (09:46)
[2024-01-13] MEDS: DONEPEZIL HCL 10 MG TABLET (FP) PO SCH (09:47)
[2024-01-13] MEDS: ENOXAPARIN NA (PORCINE) 30 MG/0.3 ML DISP.SYRIN SQ SCH (09:47)
[2024-01-13] MEDS ORDERED: ENOXAPARIN NA (PORCINE) 40 MG/0.4 ML DISP.SYRIN SQ SCH (10:00)
[2024-01-13] MEDS: LORazepam 2 MG/ML SDV VIAL IVPUSH ONE (16:00)
[2024-01-13] MEDS: OLANZapine 5 MG TABLET PO SCH (22:11)
[2024-01-14 09:30] VITALS: RESP 20
[2024-01-14 11:59] VITALS: BP 141/70; PULSE 83; TEMP 97.8
== END 2024-01-14 12:20 | disposition home health service (06) ==
LOC: JER 09:42 → INTOOBSV 13:46 → JERBED 13:46 → J8W 23:59
PROVIDERS: ADMIT Internal Medicine; ATTEND Nurse Practitioner Acute Care
PROC: 3E023GC Introduction of Other Therapeutic Substance into Muscle, Percutaneous Approach (ICD-10-PCS; principal; 2024-01-12)
DX: I12.9 Hypertensive chronic kidney disease with stage 1 through stage 4 chronic kidney disease, or unspecified chronic kidney disease (principal); E78.5 Hyperlipidemia, unspecified; G93.41 Metabolic encephalopathy; N18.9 Chronic kidney disease, unspecified; F03.90 Unspecified dementia, unspecified severity, without behavioral disturbance, psychotic disturbance, mood disturbance, and anxiety; R45.6 Violent behavior; E11.22 Type 2 diabetes mellitus with diabetic chronic kidney disease; I1A.0 Resistant hypertension; Z88.8 Allergy status to other drugs, medicaments and biological substances
CPT/HCPCS: 36415; 80048; 80053; 82962; 83735; 84100; 84484; 85025; 85027; 96372; 99285-25; G0378

== ENCOUNTER 2024-04-28 18:40 | Observation (INO) | payer OTHER ==
[2024-04-28 19:33] VITALS: BMI 22.8
[2024-04-28 20:49] LABS: EPI CELLS 7 /uL (0-25.1); HYALINE CASTS 0 /uL (0-3.1); PH,URINE 7.5 (5.0-8.0); URINE APPEARANCE CLEAR; URINE BACTERIA 332 /uL (0-1359); URINE BILIRUBIN NEGATIVE (NEGATIVE); URINE COLOR YELLOW; URINE GLUCOSE (UA) NEGATIVE (NEGATIVE); URINE KETONE NEGATIVE (NEGATIVE); URINE LEUK ESTERASE TRACE (NEGATIVE); URINE NITRITE NEGATIVE (NEGATIVE); URINE PROTEIN 2+ (NEGATIVE); URINE WBC 11 /uL (0-25.8)
[2024-04-28 21:58] LABS: BASO % 0.5 % (0-2.0); HEMATOCRIT 37.4 % (32.4-45.2); HEMOGLOBIN 12.2 GM/dL (10.7-15.3); LYMPH % 19.4 % (8-40); MCHC 32.5 g/dl (32.0-36.0); MEAN CELL VOLUME 82.9 fl (80-96); MEAN PLT VOLUME 6.8 fl (7.5-11.1); MONO % 8.5 % (3.8-10.2); NEUT % 69.6 % (42.8-82.8); PLATELET COUNT 246 10^3/uL (134-434); RBC 4.51 M/mm3 (3.60-5.2); WHITE BLOOD COUNT 9.6 K/mm3 (4.0-10.0)
[2024-04-28 22:09] LABS: URINE RBC 24.4 /uL (0-23.9)
[2024-04-28 22:23] LABS: INR 0.98 (0.83-1.09); PROTHROMBIN TIME (PATIENT) 11.3 SEC (9.7-13.0)
[2024-04-28 22:26] LABS: ACTIVATED PTT 25.4 SECONDS (25.2-36.5)
[2024-04-28 23:53] LABS: POTASSIUM 4.2 mmol/L (3.5-5.1)
[2024-04-28 23:54] LABS: ALBUMIN 3.4 g/dl (3.4-5.0); BLOOD UREA NITROGEN 17.7 mg/dL (7-18); CALCIUM 8.6 mg/dL (8.5-10.1)
[2024-04-28 23:57] LABS: CREATININE 1.2 mg/dL (0.55-1.3)
[2024-04-28 23:59] LABS: BILIRUBIN,TOTAL 0.4 mg/dL (0.2-1); TOT PROT 7.4 g/dl (6.4-8.2)
[2024-04-29] MEDS ORDERED: CEFTRIAXONE 1 GM/50 ML BAG ONE (04:02)
[2024-04-29] MEDS: CEFTRIAXONE 1 GM in DEXTROSE 5%-WATER - 50 ML IVPB SCH (05:12)
[2024-04-29] MEDS ORDERED: INSULIN ASPART SLIDING SCALE (NOVOLOG) 1 VIAL SQ SCH (07:00)
[2024-04-29 08:48] LABS: HEMATOCRIT 38.4 % (32.4-45.2); HEMOGLOBIN 12.5 GM/dL (10.7-15.3); MCH 27.2 pg (25.7-33.7); MCHC 32.6 g/dl (32.0-36.0); MEAN CELL VOLUME 83.3 fl (80-96); MEAN PLT VOLUME 7.5 fl (7.5-11.1); PLATELET COUNT 266 10^3/uL (134-434); RBC 4.62 M/mm3 (3.60-5.2); RDW 14.5 % (11.6-15.6); WHITE BLOOD COUNT 9.6 K/mm3 (4.0-10.0)
[2024-04-29 09:08] LABS: POTASSIUM 4.3 mmol/L (3.5-5.1)
[2024-04-29 09:11] LABS: CALCIUM 9.1 mg/dL (8.5-10.1)
[2024-04-29 09:12] LABS: ALBUMIN 3.4 g/dl (3.4-5.0); BLOOD UREA NITROGEN 15.3 mg/dL (7-18)
[2024-04-29 09:15] LABS: CREATININE 1.1 mg/dL (0.55-1.3); PHOSPHOROUS 4.1 mg/dL (2.5-4.9)
[2024-04-29 09:17] LABS: BILIRUBIN,TOTAL 0.5 mg/dL (0.2-1); TOT PROT 7.8 g/dl (6.4-8.2)
[2024-04-29 09:19] LABS: MAGNESIUM 2.1 mg/dL (1.8-2.4)
[2024-04-29] MEDS ORDERED: ENOXAPARIN NA (PORCINE) 40 MG/0.4 ML DISP.SYRIN SQ SCH (10:00)
[2024-04-29] MEDS: ENOXAPARIN NA (PORCINE) 30 MG/0.3 ML DISP.SYRIN SQ SCH (10:40)
[2024-04-29] MEDS: CINACALCET HCL 30 MG TAB (FP) PO SCH (10:40)
[2024-04-29] MEDS: OLANZapine 5 MG TABLET PO SCH (10:41)
[2024-04-29] MEDS: amLODIPine BESYLATE 10 MG TABLET (FP) PO SCH (10:41)
[2024-04-29] MEDS: LACTATED RINGERS SOLUTION 1,000 ML/1,000 ML INFUS.BAG IV SCH (16:43)
[2024-04-29] MEDS: ATORVASTATIN CA 10 MG TABLET (FP) PO SCH (23:31)
[2024-04-29] MEDS: DONEPEZIL HCL 10 MG TABLET (FP) PO SCH (23:33)
[2024-05-01 11:23] LABS: BASO % 0.7 % (0-2.0); EOS % 1.2 % (0-4.5); HEMATOCRIT 38.5 % (32.4-45.2); HEMOGLOBIN 12.4 GM/dL (10.7-15.3); LYMPH % 9.7 % (8-40); MCH 26.9 pg (25.7-33.7); MCHC 32.3 g/dl (32.0-36.0); MEAN CELL VOLUME 83.2 fl (80-96); MEAN PLT VOLUME 7.6 fl (7.5-11.1); MONO % 6.1 % (3.8-10.2); NEUT % 82.3 % (42.8-82.8); PLATELET COUNT 280 10^3/uL (134-434); RBC 4.62 M/mm3 (3.60-5.2); RDW 14.5 % (11.6-15.6); WHITE BLOOD COUNT 9.1 K/mm3 (4.0-10.0)
[2024-05-01 11:41] LABS: POTASSIUM 4.2 mmol/L (3.5-5.1)
[2024-05-01 11:44] LABS: BLOOD UREA NITROGEN 11.9 mg/dL (7-18); CALCIUM 9.2 mg/dL (8.5-10.1)
[2024-05-01 11:47] LABS: CREATININE 1.3 mg/dL (0.55-1.3)
[2024-05-02 08:23] LABS: BASO % 0.7 % (0-2.0); EOS % 2.4 % (0-4.5); HEMATOCRIT 34.9 % (32.4-45.2); HEMOGLOBIN 11.5 GM/dL (10.7-15.3); MCH 27.1 pg (25.7-33.7); MEAN CELL VOLUME 82.1 fl (80-96); MEAN PLT VOLUME 7.4 fl (7.5-11.1); MONO % 10.8 % (3.8-10.2); NEUT % 60.1 % (42.8-82.8); PLATELET COUNT 266 10^3/uL (134-434); RBC 4.26 M/mm3 (3.60-5.2); RDW 14.7 % (11.6-15.6); WHITE BLOOD COUNT 6.2 K/mm3 (4.0-10.0)
[2024-05-02 08:38] LABS: POTASSIUM 4.4 mmol/L (3.5-5.1)
[2024-05-02 08:40] LABS: CALCIUM 8.4 mg/dL (8.5-10.1)
[2024-05-02 08:41] LABS: BLOOD UREA NITROGEN 11.5 mg/dL (7-18)
[2024-05-02 08:44] LABS: CREATININE 1.2 mg/dL (0.55-1.3)
[2024-05-05 13:22] VITALS: BP 125/68; PULSE 106; RESP 20; TEMP 98.8
== END 2024-05-05 16:51 | disposition home health service (06) ==
LOC: JER 18:40 → JERBED 04-29 00:33 → J7W 04-29 15:53
PROVIDERS: ADMIT Internal Medicine; ATTEND Nurse Practitioner
PROC: 3E023GC Introduction of Other Therapeutic Substance into Muscle, Percutaneous Approach (ICD-10-PCS; principal; 2024-04-29)
PROC: 3E0337Z Introduction of Electrolytic and Water Balance Substance into Peripheral Vein, Percutaneous Approach (ICD-10-PCS; 2024-04-29)
DX: R53.1 Weakness (principal); R13.10 Dysphagia, unspecified; G30.9 Alzheimer's disease, unspecified; F02.80 Dementia in other diseases classified elsewhere, unspecified severity, without behavioral disturbance, psychotic disturbance, mood disturbance, and anxiety; E78.5 Hyperlipidemia, unspecified; I10 Essential (primary) hypertension; E11.9 Type 2 diabetes mellitus without complications; N28.9 Disorder of kidney and ureter, unspecified; J45.909 Unspecified asthma, uncomplicated
CPT/HCPCS: 0241U-QW; 36415; 70450-TC; 71045-TC-FY; 74230-TC-FY; 80048; 80053; 81003; 82550; 83735; 84100; 84484; 85025; 85027; 85610; 85730; 86850; 86900; 86901; 87086; 92611-GN; 93005; 93010; 96360; 96361; 97116-GP; 97162-GP; 99285-25; G0378

== ENCOUNTER 2024-05-12 09:52 | Inpatient (IN) | payer OTHER ==
[2024-05-12 11:10] LABS: HEMATOCRIT 36.5 % (32.4-45.2); HEMOGLOBIN 12.1 GM/dL (10.7-15.3); MCH 27.5 pg (25.7-33.7); MEAN CELL VOLUME 83.1 fl (80-96); MEAN PLT VOLUME 6.9 fl (7.5-11.1); PLATELET COUNT 310 10^3/uL (134-434); RBC 4.39 M/mm3 (3.60-5.2); RDW 14.7 % (11.6-15.6)
[2024-05-12 11:17] LABS: INR 0.97 (0.83-1.09)
[2024-05-12 11:19] LABS: ACTIVATED PTT 22.3 SECONDS (25.2-36.5)
[2024-05-12 11:33] LABS: POTASSIUM 4.5 mmol/L (3.5-5.1)
[2024-05-12 11:35] LABS: ALBUMIN 3.4 g/dl (3.4-5.0); BLOOD UREA NITROGEN 17.4 mg/dL (7-18)
[2024-05-12 11:38] LABS: CREATININE 1.5 mg/dL (0.55-1.3)
[2024-05-12 11:40] LABS: BILIRUBIN,TOTAL 0.3 mg/dL (0.2-1); TOT PROT 7.6 g/dl (6.4-8.2)
[2024-05-12 11:42] LABS: CALCIUM 9.8 mg/dL (8.5-10.1)
[2024-05-12] MEDS ORDERED: PANTOPRAZOLE SODIUM 40 MG VIAL ONE (13:11)
[2024-05-12] MEDS: PANTOPRAZOLE SODIUM 40 MG VIAL IVPUSH ONE (13:21)
[2024-05-12] MEDS: LACTATED RINGERS SOLUTION 1,000 ML/1,000 ML INFUS.BAG IV SCH (14:42)
[2024-05-12] MEDS: DONEPEZIL HCL 10 MG TABLET (FP) PO SCH (21:16)
[2024-05-12] MEDS: CINACALCET HCL 30 MG TAB (FP) PO SCH (21:16)
[2024-05-12] MEDS: OLANZapine 5 MG TABLET PO SCH (21:16)
[2024-05-12] MEDS: ATORVASTATIN CA 10 MG TABLET (FP) PO SCH (21:16)
[2024-05-13 10:29] LABS: HEMATOCRIT 31.5 % (32.4-45.2); HEMOGLOBIN 10.5 GM/dL (10.7-15.3); MCH 27.4 pg (25.7-33.7); MCHC 33.4 g/dl (32.0-36.0); MEAN CELL VOLUME 82.2 fl (80-96); MEAN PLT VOLUME 7.6 fl (7.5-11.1); PLATELET COUNT 304 10^3/uL (134-434); RBC 3.84 M/mm3 (3.60-5.2); RDW 14.7 % (11.6-15.6); WHITE BLOOD COUNT 10.5 K/mm3 (4.0-10.0)
[2024-05-13 10:51] LABS: POTASSIUM 4.2 mmol/L (3.5-5.1)
[2024-05-13 10:53] LABS: BLOOD UREA NITROGEN 17.3 mg/dL (7-18); CALCIUM 10.1 mg/dL (8.5-10.1)
[2024-05-13 10:57] LABS: CREATININE 1.2 mg/dL (0.55-1.3)
[2024-05-13] MEDS: amLODIPine BESYLATE 10 MG TABLET (FP) PO SCH (10:58)
[2024-05-13] MEDS: PANTOPRAZOLE SODIUM 40 MG VIAL IVPUSH SCH (11:01)
[2024-05-13] MEDS: POLYETHYLENE GLYCOL (HEALTHYLAX) 3350 17 GM PACKET PO SCH (13:12)
[2024-05-13] MEDS ORDERED: POLYETHYLENE GLYCOL (HEALTHYLAX) 3350 17 GM PACKET PO SCH (22:00)
[2024-05-13 23:38] LABS: BASO % 0.6 % (0-2.0); EOS % 0.6 % (0-4.5); HEMATOCRIT 26.6 % (32.4-45.2); HEMOGLOBIN 8.9 GM/dL (10.7-15.3); LYMPH % 15.2 % (8-40); MCH 27.2 pg (25.7-33.7); MCHC 33.3 g/dl (32.0-36.0); MEAN CELL VOLUME 81.8 fl (80-96); MEAN PLT VOLUME 6.9 fl (7.5-11.1); MONO % 5.9 % (3.8-10.2); NEUT % 77.7 % (42.8-82.8); PLATELET COUNT 273 10^3/uL (134-434); RBC 3.26 M/mm3 (3.60-5.2); RDW 14.5 % (11.6-15.6); WHITE BLOOD COUNT 12.6 K/mm3 (4.0-10.0)
[2024-05-14 07:37] LABS: PROTHROMBIN TIME (PATIENT) 11.5 SEC (9.7-13.0)
[2024-05-14 07:43] LABS: POTASSIUM 4.3 mmol/L (3.5-5.1)
[2024-05-14 07:46] LABS: ALBUMIN 2.8 g/dl (3.4-5.0); BLOOD UREA NITROGEN 18.2 mg/dL (7-18); MAGNESIUM 1.8 mg/dL (1.8-2.4)
[2024-05-14 07:49] LABS: CREATININE 1.2 mg/dL (0.55-1.3)
[2024-05-14 07:51] LABS: BILIRUBIN,TOTAL 0.6 mg/dL (0.2-1); TOT PROT 6.4 g/dl (6.4-8.2)
[2024-05-14 07:58] LABS: CALCIUM 8.5 mg/dL (8.5-10.1)
[2024-05-14 08:03] LABS: BASO % 0.5 % (0-2.0); EOS % 0.5 % (0-4.5); HEMATOCRIT 28.3 % (32.4-45.2); HEMOGLOBIN 9.6 GM/dL (10.7-15.3); LYMPH % 14.6 % (8-40); MCH 27.9 pg (25.7-33.7); MCHC 33.9 g/dl (32.0-36.0); MEAN CELL VOLUME 82.4 fl (80-96); MEAN PLT VOLUME 7.5 fl (7.5-11.1); MONO % 5.8 % (3.8-10.2); NEUT % 78.6 % (42.8-82.8); PLATELET COUNT 268 10^3/uL (134-434); RBC 3.44 M/mm3 (3.60-5.2); RDW 14.3 % (11.6-15.6); WHITE BLOOD COUNT 10.7 K/mm3 (4.0-10.0)
[2024-05-14] MEDS ORDERED: PEG 3350/NA SULF BICARB CL/KCL 4000 ML SOLN.RECON PO SCH (08:30)
[2024-05-14 17:50] LABS: BASO % 0.6 % (0-2.0); EOS % 0.7 % (0-4.5); HEMATOCRIT 25.9 % (32.4-45.2); HEMOGLOBIN 8.6 GM/dL (10.7-15.3); LYMPH % 17.9 % (8-40); MCH 27.1 pg (25.7-33.7); MEAN CELL VOLUME 82.1 fl (80-96); MEAN PLT VOLUME 7.5 fl (7.5-11.1); MONO % 7.1 % (3.8-10.2); NEUT % 73.7 % (42.8-82.8); PLATELET COUNT 255 10^3/uL (134-434); RBC 3.16 M/mm3 (3.60-5.2); RDW 14.6 % (11.6-15.6); WHITE BLOOD COUNT 9.1 K/mm3 (4.0-10.0)
[2024-05-15 08:01] LABS: BASO % 0.5 % (0-2.0); EOS % 0.8 % (0-4.5); HEMATOCRIT 25.6 % (32.4-45.2); HEMOGLOBIN 8.7 GM/dL (10.7-15.3); LYMPH % 16.5 % (8-40); MCH 27.6 pg (25.7-33.7); MCHC 33.9 g/dl (32.0-36.0); MEAN CELL VOLUME 81.5 fl (80-96); MEAN PLT VOLUME 7.5 fl (7.5-11.1); MONO % 6.5 % (3.8-10.2); NEUT % 75.7 % (42.8-82.8); PLATELET COUNT 254 10^3/uL (134-434); RBC 3.14 M/mm3 (3.60-5.2); RDW 14.2 % (11.6-15.6); WHITE BLOOD COUNT 8.4 K/mm3 (4.0-10.0)
[2024-05-15 08:15] LABS: POTASSIUM 3.8 mmol/L (3.5-5.1)
[2024-05-15 08:19] LABS: CALCIUM 8.3 mg/dL (8.5-10.1)
[2024-05-15 08:20] LABS: ALBUMIN 2.8 g/dl (3.4-5.0); BLOOD UREA NITROGEN 13.9 mg/dL (7-18); MAGNESIUM 1.6 mg/dL (1.8-2.4)
[2024-05-15 08:23] LABS: CREATININE 1.3 mg/dL (0.55-1.3)
[2024-05-15 08:25] LABS: BILIRUBIN,TOTAL 0.6 mg/dL (0.2-1); TOT PROT 6.1 g/dl (6.4-8.2)
[2024-05-15] MEDS: MAGNESIUM OXIDE 400 MG TABLET (FP) PO ONE (12:07)
[2024-05-15] MEDS: BISACODYL 5 MG TABLET.DR (FP) PO ONE (18:10)
[2024-05-15 23:32] VITALS: BMI 18.5
[2024-05-16 09:03] LABS: BASO % 0.7 % (0-2.0); HEMATOCRIT 22.7 % (32.4-45.2); HEMOGLOBIN 7.8 GM/dL (10.7-15.3); LYMPH % 17.8 % (8-40); MCH 28.2 pg (25.7-33.7); MCHC 34.4 g/dl (32.0-36.0); MEAN CELL VOLUME 81.9 fl (80-96); MEAN PLT VOLUME 7.4 fl (7.5-11.1); MONO % 6.4 % (3.8-10.2); NEUT % 74.1 % (42.8-82.8); PLATELET COUNT 252 10^3/uL (134-434); RBC 2.78 M/mm3 (3.60-5.2); RDW 14.7 % (11.6-15.6); WHITE BLOOD COUNT 6.5 K/mm3 (4.0-10.0)
[2024-05-16 09:44] LABS: POTASSIUM 3.7 mmol/L (3.5-5.1)
[2024-05-16 09:47] LABS: ALBUMIN 2.8 g/dl (3.4-5.0)
[2024-05-16 09:48] LABS: BLOOD UREA NITROGEN 13.7 mg/dL (7-18); CALCIUM 7.8 mg/dL (8.5-10.1)
[2024-05-16 09:50] LABS: MAGNESIUM 1.7 mg/dL (1.8-2.4)
[2024-05-16 09:53] LABS: CREATININE 1.2 mg/dL (0.55-1.3)
[2024-05-16 09:55] LABS: BILIRUBIN,TOTAL 0.4 mg/dL (0.2-1)
[2024-05-16] MEDS: POLYETHYLENE GLYCOL 3350 255 GM BTL PO ONE (13:50)
[2024-05-16] MEDS: MAGNESIUM 2GM/50ML STERILE WATER IVPB IVPB ONE (18:11)
[2024-05-16] MEDS: BISACODYL 5 MG TABLET.DR (FP) PO ONE (21:27)
[2024-05-17 12:53] LABS: BASO % 0.7 % (0-2.0); EOS % 2.4 % (0-4.5); HEMATOCRIT 28.8 % (32.4-45.2); MCH 28.5 pg (25.7-33.7); MCHC 34.8 g/dl (32.0-36.0); MEAN CELL VOLUME 81.9 fl (80-96); MEAN PLT VOLUME 7.3 fl (7.5-11.1); MONO % 7.3 % (3.8-10.2); NEUT % 68.6 % (42.8-82.8); PLATELET COUNT 260 10^3/uL (134-434); RBC 3.52 M/mm3 (3.60-5.2); RDW 14.5 % (11.6-15.6); WHITE BLOOD COUNT 7.4 K/mm3 (4.0-10.0)
[2024-05-17 13:00] LABS: INR 0.96 (0.83-1.09); PROTHROMBIN TIME (PATIENT) 11.1 SEC (9.7-13.0)
[2024-05-17 13:14] LABS: POTASSIUM 3.4 mmol/L (3.5-5.1)
[2024-05-17 13:16] LABS: CALCIUM 7.8 mg/dL (8.5-10.1)
[2024-05-17 13:17] LABS: BLOOD UREA NITROGEN 12.4 mg/dL (7-18)
[2024-05-17 13:21] LABS: CREATININE 1.3 mg/dL (0.55-1.3); TOT PROT 6.4 g/dl (6.4-8.2)
[2024-05-17 13:22] LABS: BILIRUBIN,TOTAL 0.7 mg/dL (0.2-1)
[2024-05-17] MEDS: ACETAMINOPHEN 325 MG TABLET (FP) PO PRN (21:39)
[2024-05-18 08:25] LABS: BASO % 0.6 % (0-2.0); EOS % 1.5 % (0-4.5); HEMATOCRIT 28.7 % (32.4-45.2); HEMOGLOBIN 9.9 GM/dL (10.7-15.3); LYMPH % 17.4 % (8-40); MCH 28.1 pg (25.7-33.7); MCHC 34.4 g/dl (32.0-36.0); MEAN CELL VOLUME 81.7 fl (80-96); MEAN PLT VOLUME 7.2 fl (7.5-11.1); MONO % 5.9 % (3.8-10.2); NEUT % 74.6 % (42.8-82.8); PLATELET COUNT 275 10^3/uL (134-434); RBC 3.51 M/mm3 (3.60-5.2)
[2024-05-18 08:43] LABS: POTASSIUM 3.5 mmol/L (3.5-5.1)
[2024-05-18 08:47] LABS: CALCIUM 7.6 mg/dL (8.5-10.1)
[2024-05-18 08:48] LABS: BLOOD UREA NITROGEN 11.9 mg/dL (7-18)
[2024-05-18 08:51] LABS: CREATININE 1.3 mg/dL (0.55-1.3)
[2024-05-18 08:55] LABS: BILIRUBIN,TOTAL 0.6 mg/dL (0.2-1); TOT PROT 6.4 g/dl (6.4-8.2)
[2024-05-18] MEDS: POTASSIUM CHLORIDE TABS 20 MEQ TABLET.ER (FP) PO ONE (09:42)
[2024-05-18] MEDS: POLYETHYLENE GLYCOL (HEALTHYLAX) 3350 17 GM PACKET PO SCH (09:42)
[2024-05-18] MEDS: PANTOPRAZOLE 40 MG TABLET PO SCH (09:42)
[2024-05-18 20:46] VITALS: RESP 18
[2024-05-19 09:27] LABS: BASO % 0.5 % (0-2.0); EOS % 2.1 % (0-4.5); HEMATOCRIT 33.1 % (32.4-45.2); LYMPH % 22.5 % (8-40); MCH 27.9 pg (25.7-33.7); MCHC 33.2 g/dl (32.0-36.0); MEAN PLT VOLUME 7.2 fl (7.5-11.1); NEUT % 68.9 % (42.8-82.8); PLATELET COUNT 331 10^3/uL (134-434); RBC 3.94 M/mm3 (3.60-5.2); RDW 14.8 % (11.6-15.6)
[2024-05-19 09:35] VITALS: BP 133/65; PULSE 75; TEMP 98.6
== END 2024-05-19 11:28 | disposition home health service (06) | DRG 347 ==
LOC: JER 09:52 → JERBED 13:33 → J7W 18:46 → OBSVTOIN 05-15 12:02
PROVIDERS: ADMIT Internal Medicine; ATTEND Nurse Practitioner Acute Care
PROC: 30233N1 Transfusion of Nonautologous Red Blood Cells into Peripheral Vein, Percutaneous Approach (ICD-10-PCS; principal; 2024-05-16)
PROC: 0DBC8ZZ Excision of Ileocecal Valve, Via Natural or Artificial Opening Endoscopic (ICD-10-PCS; 2024-05-17)
PROC: 0DBK8ZZ Excision of Ascending Colon, Via Natural or Artificial Opening Endoscopic (ICD-10-PCS; 2024-05-17)
PROC: 0DBP8ZZ Excision of Rectum, Via Natural or Artificial Opening Endoscopic (ICD-10-PCS; 2024-05-17)
DX: K57.31 Diverticulosis of large intestine without perforation or abscess with bleeding (principal); E43 Unspecified severe protein-calorie malnutrition; G93.41 Metabolic encephalopathy; J45.909 Unspecified asthma, uncomplicated; E78.5 Hyperlipidemia, unspecified; R13.10 Dysphagia, unspecified; D25.9 Leiomyoma of uterus, unspecified; I08.1 Rheumatic disorders of both mitral and tricuspid valves; Z68.20 Body mass index [BMI] 20.0-20.9, adult; F03.90 Unspecified dementia, unspecified severity, without behavioral disturbance, psychotic disturbance, mood disturbance, and anxiety; I12.9 Hypertensive chronic kidney disease with stage 1 through stage 4 chronic kidney disease, or unspecified chronic kidney disease; E11.22 Type 2 diabetes mellitus with diabetic chronic kidney disease; N18.9 Chronic kidney disease, unspecified; D50.9 Iron deficiency anemia, unspecified; K57.90 Diverticulosis of intestine, part unspecified, without perforation or abscess without bleeding; D12.0 Benign neoplasm of cecum; D12.2 Benign neoplasm of ascending colon; D12.8 Benign neoplasm of rectum
CPT/HCPCS: 36415; 36430; 74177-TC; 80048; 80053; 82272; 82962; 83036; 83735; 85025; 85027; 85610; 85730; 86850; 86900; 86901; 86922; 88305-TC; 93005; 93010; 93306-TC; 99285-25; G0378; P9038; P9058

== ENCOUNTER 2024-05-22 20:58 | Observation (INO) | payer OTHER ==
[2024-05-22 21:11] VITALS: BMI 23.6
[2024-05-22 22:26] LABS: BASO % 0.6 % (0-2.0); EOS % 1.7 % (0-4.5); HEMATOCRIT 28.2 % (32.4-45.2); HEMOGLOBIN 9.6 GM/dL (10.7-15.3); LYMPH % 20.3 % (8-40); MCH 28.4 pg (25.7-33.7); MCHC 34.2 g/dl (32.0-36.0); MEAN CELL VOLUME 83.3 fl (80-96); MEAN PLT VOLUME 6.5 fl (7.5-11.1); MONO % 7.4 % (3.8-10.2); PLATELET COUNT 336 10^3/uL (134-434); RBC 3.39 M/mm3 (3.60-5.2); RDW 14.8 % (11.6-15.6); WHITE BLOOD COUNT 9.9 K/mm3 (4.0-10.0)
[2024-05-22 22:33] LABS: INR 0.89 (0.83-1.09); PROTHROMBIN TIME (PATIENT) 10.3 SEC (9.7-13.0)
[2024-05-22 22:36] LABS: ACTIVATED PTT 24.7 SECONDS (25.2-36.5)
[2024-05-22 23:01] LABS: POTASSIUM 4.7 mmol/L (3.5-5.1)
[2024-05-22 23:03] LABS: CALCIUM 8.7 mg/dL (8.5-10.1)
[2024-05-22 23:04] LABS: ALBUMIN 3.3 g/dl (3.4-5.0); BLOOD UREA NITROGEN 18.2 mg/dL (7-18)
[2024-05-22 23:07] LABS: CREATININE 1.4 mg/dL (0.55-1.3); PHOSPHOROUS 3.8 mg/dL (2.5-4.9)
[2024-05-22 23:08] LABS: BILIRUBIN,TOTAL 0.2 mg/dL (0.2-1); TOT PROT 6.8 g/dl (6.4-8.2)
[2024-05-23] MEDS: SODIUM CHLORIDE 1,000 ML IV SCH (04:55)
[2024-05-23 05:45] LABS: RETICULOCYTES 2.15 % (0.5-1.5)
[2024-05-23 06:10] LABS: HEMATOCRIT 30.1 % (32.4-45.2); HEMOGLOBIN 9.9 GM/dL (10.7-15.3); MEAN CELL VOLUME 84.7 fl (80-96); MEAN PLT VOLUME 6.6 fl (7.5-11.1); PLATELET COUNT 332 10^3/uL (134-434); RBC 3.55 M/mm3 (3.60-5.2); RDW 14.8 % (11.6-15.6); WHITE BLOOD COUNT 10.5 K/mm3 (4.0-10.0)
[2024-05-23 06:30] LABS: POTASSIUM 4.2 mmol/L (3.5-5.1)
[2024-05-23 06:32] LABS: ALBUMIN 3.2 g/dl (3.4-5.0); BLOOD UREA NITROGEN 15.4 mg/dL (7-18); CALCIUM 8.5 mg/dL (8.5-10.1)
[2024-05-23 06:33] LABS: MAGNESIUM 1.8 mg/dL (1.8-2.4)
[2024-05-23 06:35] LABS: CREATININE 1.2 mg/dL (0.55-1.3); PHOSPHOROUS 3.6 mg/dL (2.5-4.9)
[2024-05-23 06:37] LABS: BILIRUBIN,TOTAL 0.4 mg/dL (0.2-1); TOT PROT 6.9 g/dl (6.4-8.2)
[2024-05-23] MEDS: INSULIN ASPART SLIDING SCALE (NOVOLOG) 1 VIAL SQ SCH (07:32)
[2024-05-23] MEDS: CINACALCET HCL 30 MG TAB (FP) PO SCH (09:11)
[2024-05-23] MEDS: PANTOPRAZOLE 40 MG TABLET PO SCH (09:11)
[2024-05-23] MEDS: OLANZapine 5 MG TABLET PO SCH (09:11)
[2024-05-23 09:47] LABS: RETICULOCYTES 2.23 % (0.5-1.5)
[2024-05-23] MEDS ORDERED: amLODIPine BESYLATE 10 MG TABLET (FP) PO SCH (10:00)
[2024-05-23 11:07] LABS: BASO % 0.8 % (0-2.0); EOS % 1.4 % (0-4.5); HEMATOCRIT 31.2 % (32.4-45.2); HEMOGLOBIN 10.4 GM/dL (10.7-15.3); LYMPH % 23.1 % (8-40); MCH 27.8 pg (25.7-33.7); MCHC 33.2 g/dl (32.0-36.0); MEAN CELL VOLUME 83.8 fl (80-96); MEAN PLT VOLUME 6.5 fl (7.5-11.1); MONO % 6.7 % (3.8-10.2); PLATELET COUNT 385 10^3/uL (134-434); RBC 3.73 M/mm3 (3.60-5.2); RDW 15.3 % (11.6-15.6); WHITE BLOOD COUNT 11.7 K/mm3 (4.0-10.0)
[2024-05-23] MEDS: POLYETHYLENE GLYCOL 3350 255 GM BTL PO ONE (17:13)
[2024-05-23] MEDS: BISACODYL 5 MG TABLET.DR (FP) PO ONE (21:00)
[2024-05-23] MEDS: ATORVASTATIN CA 10 MG TABLET (FP) PO SCH (21:52)
[2024-05-23] MEDS: DONEPEZIL HCL 10 MG TABLET (FP) PO SCH (21:53)
[2024-05-24] MEDS: SODIUM CHLORIDE 1,000 ML IV SCH (03:00)
[2024-05-24] MEDS: INSULIN ASPART SLIDING SCALE (NOVOLOG) 1 VIAL SQ SCH (06:22)
[2024-05-24] MEDS: CINACALCET HCL 30 MG TAB (FP) PO SCH (09:24)
[2024-05-24] MEDS: OLANZapine 5 MG TABLET PO SCH (09:24)
[2024-05-24 10:22] LABS: INR 0.98 (0.83-1.09); PROTHROMBIN TIME (PATIENT) 11.3 SEC (9.7-13.0)
[2024-05-24 10:23] LABS: BASO % 0.8 % (0-2.0); EOS % 2.1 % (0-4.5); HEMATOCRIT 28.8 % (32.4-45.2); HEMOGLOBIN 9.5 GM/dL (10.7-15.3); LYMPH % 19.4 % (8-40); MCH 28.2 pg (25.7-33.7); MCHC 33.1 g/dl (32.0-36.0); MEAN PLT VOLUME 7.3 fl (7.5-11.1); MONO % 6.7 % (3.8-10.2); PLATELET COUNT 343 10^3/uL (134-434); RBC 3.39 M/mm3 (3.60-5.2); RDW 14.9 % (11.6-15.6); WHITE BLOOD COUNT 7.4 K/mm3 (4.0-10.0)
[2024-05-24 10:45] LABS: POTASSIUM 4.1 mmol/L (3.5-5.1)
[2024-05-24 10:50] LABS: CALCIUM 8.2 mg/dL (8.5-10.1)
[2024-05-24 10:52] LABS: ALBUMIN 2.8 g/dl (3.4-5.0); BLOOD UREA NITROGEN 10.8 mg/dL (7-18)
[2024-05-24 10:55] LABS: CREATININE 1.1 mg/dL (0.55-1.3); TOT PROT 6.2 g/dl (6.4-8.2)
[2024-05-24 10:59] LABS: BILIRUBIN,TOTAL 0.4 mg/dL (0.2-1)
[2024-05-24] MEDS: ATORVASTATIN CA 10 MG TABLET (FP) PO SCH (21:58)
[2024-05-24] MEDS: DONEPEZIL HCL 10 MG TABLET (FP) PO SCH (21:58)
[2024-05-25 09:56] LABS: BASO % 0.6 % (0-2.0); EOS % 1.4 % (0-4.5); HEMATOCRIT 30.5 % (32.4-45.2); HEMOGLOBIN 10.2 GM/dL (10.7-15.3); LYMPH % 20.2 % (8-40); MCH 28.2 pg (25.7-33.7); MCHC 33.5 g/dl (32.0-36.0); MEAN CELL VOLUME 84.1 fl (80-96); MEAN PLT VOLUME 6.6 fl (7.5-11.1); MONO % 4.5 % (3.8-10.2); NEUT % 73.3 % (42.8-82.8); PLATELET COUNT 343 10^3/uL (134-434); RBC 3.63 M/mm3 (3.60-5.2); RDW 14.9 % (11.6-15.6); WHITE BLOOD COUNT 7.8 K/mm3 (4.0-10.0)
[2024-05-25 10:17] LABS: ALBUMIN 3.2 g/dl (3.4-5.0); BLOOD UREA NITROGEN 8.1 mg/dL (7-18); CALCIUM 8.7 mg/dL (8.5-10.1)
[2024-05-25 10:18] LABS: BILIRUBIN,TOTAL 0.6 mg/dL (0.2-1)
[2024-05-25 10:20] LABS: CREATININE 1.1 mg/dL (0.55-1.3); PHOSPHOROUS 3.9 mg/dL (2.5-4.9)
[2024-05-25 10:22] LABS: TOT PROT 6.7 g/dl (6.4-8.2)
[2024-05-25 10:24] LABS: MAGNESIUM 1.9 mg/dL (1.8-2.4)
[2024-05-25 18:08] VITALS: BP 134/56; PULSE 76; RESP 17; TEMP 98.1
== END 2024-05-26 00:46 | disposition home or self-care (01) ==
LOC: JER 20:58 → JERBED 23:33 → J6S 05-23 12:08
PROVIDERS: ADMIT Internal Medicine; ATTEND Internal Medicine
PROC: 3E013VG Introduction of Insulin into Subcutaneous Tissue, Percutaneous Approach (ICD-10-PCS; principal; 2024-05-22)
PROC: 3E0337Z Introduction of Electrolytic and Water Balance Substance into Peripheral Vein, Percutaneous Approach (ICD-10-PCS; 2024-05-22)
DX: K92.2 Gastrointestinal hemorrhage, unspecified (principal); D50.9 Iron deficiency anemia, unspecified; N18.9 Chronic kidney disease, unspecified; K92.1 Melena; J45.909 Unspecified asthma, uncomplicated; E78.5 Hyperlipidemia, unspecified; F03.90 Unspecified dementia, unspecified severity, without behavioral disturbance, psychotic disturbance, mood disturbance, and anxiety; N13.39 Other hydronephrosis; Z88.8 Allergy status to other drugs, medicaments and biological substances; E11.9 Type 2 diabetes mellitus without complications
CPT/HCPCS: 36415; 74174-TC; 80053; 82272; 82728; 82962; 83540; 83550; 83605; 83735; 84100; 84466; 84484; 85025; 85027; 85045; 85610; 85730; 86850; 86900; 86901; 93005; 93010; 96360; 96361; 96372; 99285-25; G0378

== ENCOUNTER 2024-06-02 12:29 | Observation (INO) | payer OTHER ==
[2024-06-02 14:16] LABS: BASO % 0.7 % (0-2.0); EOS % 1.7 % (0-4.5); HEMATOCRIT 27.6 % (32.4-45.2); HEMOGLOBIN 9.1 GM/dL (10.7-15.3); LYMPH % 15.8 % (8-40); MCH 27.9 pg (25.7-33.7); MEAN CELL VOLUME 84.4 fl (80-96); MEAN PLT VOLUME 7.2 fl (7.5-11.1); MONO % 8.4 % (3.8-10.2); NEUT % 73.4 % (42.8-82.8); PLATELET COUNT 307 10^3/uL (134-434); RBC 3.26 M/mm3 (3.60-5.2); RDW 15.2 % (11.6-15.6); WHITE BLOOD COUNT 8.2 K/mm3 (4.0-10.0)
[2024-06-02 14:20] LABS: INR 0.92 (0.83-1.09); PROTHROMBIN TIME (PATIENT) 10.4 SEC (9.7-13.0)
[2024-06-02 14:32] LABS: POTASSIUM 4.4 mmol/L (3.5-5.1)
[2024-06-02 14:35] LABS: ALBUMIN 3.4 g/dl (3.4-5.0); BLOOD UREA NITROGEN 19.8 mg/dL (7-18)
[2024-06-02 14:38] LABS: CALCIUM 10.4 mg/dL (8.5-10.1); CREATININE 1.4 mg/dL (0.55-1.3)
[2024-06-02 14:40] LABS: BILIRUBIN,TOTAL 0.3 mg/dL (0.2-1); TOT PROT 7.4 g/dl (6.4-8.2)
[2024-06-02] MEDS: SODIUM CHLORIDE 500 ML IV STA (17:20)
[2024-06-02] MEDS ORDERED: PANTOPRAZOLE 40 MG TABLET PO SCH (17:30)
[2024-06-02] MEDS: SODIUM CHLORIDE 1,000 ML IV SCH (19:54)
[2024-06-02] MEDS: CINACALCET HCL 30 MG TAB (FP) PO SCH (22:49)
[2024-06-02] MEDS: OLANZapine 5 MG TABLET PO SCH (22:49)
[2024-06-02] MEDS: ATORVASTATIN CA 10 MG TABLET (FP) PO SCH (22:49)
[2024-06-02] MEDS: PANTOPRAZOLE SODIUM 40 MG VIAL IVPUSH SCH (22:50)
[2024-06-03 09:26] LABS: HEMATOCRIT 25.4 % (32.4-45.2); HEMOGLOBIN 8.7 GM/dL (10.7-15.3); MCH 28.4 pg (25.7-33.7); MCHC 34.1 g/dl (32.0-36.0); MEAN CELL VOLUME 83.3 fl (80-96); MEAN PLT VOLUME 7.4 fl (7.5-11.1); PLATELET COUNT 305 10^3/uL (134-434); RBC 3.05 M/mm3 (3.60-5.2); RDW 14.8 % (11.6-15.6); WHITE BLOOD COUNT 6.5 K/mm3 (4.0-10.0)
[2024-06-03 09:51] LABS: POTASSIUM 3.9 mmol/L (3.5-5.1)
[2024-06-03 09:57] LABS: BLOOD UREA NITROGEN 13.3 mg/dL (7-18); CALCIUM 9.7 mg/dL (8.5-10.1)
[2024-06-03 10:00] LABS: PHOSPHOROUS 3.4 mg/dL (2.5-4.9)
[2024-06-03 13:31] VITALS: BMI 17.9
[2024-06-03] MEDS: DONEPEZIL HCL 10 MG TABLET (FP) PO SCH (21:19)
[2024-06-04 08:14] LABS: BASO % 0.7 % (0-2.0); EOS % 1.7 % (0-4.5); HEMATOCRIT 24.6 % (32.4-45.2); HEMOGLOBIN 8.3 GM/dL (10.7-15.3); LYMPH % 18.3 % (8-40); MCH 28.3 pg (25.7-33.7); MCHC 33.8 g/dl (32.0-36.0); MEAN CELL VOLUME 83.8 fl (80-96); MEAN PLT VOLUME 7.5 fl (7.5-11.1); MONO % 6.3 % (3.8-10.2); PLATELET COUNT 316 10^3/uL (134-434); RBC 2.93 M/mm3 (3.60-5.2); RDW 14.8 % (11.6-15.6); WHITE BLOOD COUNT 8.6 K/mm3 (4.0-10.0)
[2024-06-04 08:43] LABS: POTASSIUM 3.7 mmol/L (3.5-5.1)
[2024-06-04 08:46] LABS: CALCIUM 8.7 mg/dL (8.5-10.1)
[2024-06-04 08:47] LABS: ALBUMIN 2.8 g/dl (3.4-5.0); BLOOD UREA NITROGEN 14.4 mg/dL (7-18); MAGNESIUM 1.8 mg/dL (1.8-2.4)
[2024-06-04 08:50] LABS: CREATININE 1.1 mg/dL (0.55-1.3)
[2024-06-04 08:52] LABS: BILIRUBIN,TOTAL 0.5 mg/dL (0.2-1)
[2024-06-04] MEDS: amLODIPine BESYLATE 10 MG TABLET (FP) PO SCH (09:57)
[2024-06-04] MEDS: IRON SUCROSE INJECTION 200 MG in SODIUM CHLORIDE 100 ML IVPB ONE (14:47)
[2024-06-05 09:56] LABS: BASO % 0.5 % (0-2.0); EOS % 1.3 % (0-4.5); HEMATOCRIT 27.3 % (32.4-45.2); HEMOGLOBIN 9.4 GM/dL (10.7-15.3); LYMPH % 14.4 % (8-40); MCH 28.5 pg (25.7-33.7); MCHC 34.5 g/dl (32.0-36.0); MEAN CELL VOLUME 82.7 fl (80-96); MEAN PLT VOLUME 7.5 fl (7.5-11.1); MONO % 6.1 % (3.8-10.2); NEUT % 77.7 % (42.8-82.8); PLATELET COUNT 344 10^3/uL (134-434); RDW 14.9 % (11.6-15.6)
[2024-06-05 10:11] LABS: POTASSIUM 3.7 mmol/L (3.5-5.1)
[2024-06-05 10:12] LABS: CALCIUM 8.3 mg/dL (8.5-10.1)
[2024-06-05 10:13] LABS: ALBUMIN 3.2 g/dl (3.4-5.0); BLOOD UREA NITROGEN 9.7 mg/dL (7-18); MAGNESIUM 1.7 mg/dL (1.8-2.4)
[2024-06-05 10:15] LABS: CREATININE 1.1 mg/dL (0.55-1.3)
[2024-06-05 10:17] LABS: BILIRUBIN,TOTAL 0.5 mg/dL (0.2-1); TOT PROT 6.8 g/dl (6.4-8.2)
[2024-06-06 01:02] VITALS: RESP 18
[2024-06-06 09:15] LABS: BASO % 0.7 % (0-2.0); HEMATOCRIT 27.7 % (32.4-45.2); HEMOGLOBIN 9.3 GM/dL (10.7-15.3); LYMPH % 15.9 % (8-40); MCH 27.8 pg (25.7-33.7); MCHC 33.5 g/dl (32.0-36.0); MEAN CELL VOLUME 83.1 fl (80-96); MEAN PLT VOLUME 7.3 fl (7.5-11.1); MONO % 6.7 % (3.8-10.2); NEUT % 74.7 % (42.8-82.8); PLATELET COUNT 326 10^3/uL (134-434); RBC 3.34 M/mm3 (3.60-5.2); WHITE BLOOD COUNT 7.5 K/mm3 (4.0-10.0)
[2024-06-06 09:32] LABS: POTASSIUM 3.4 mmol/L (3.5-5.1)
[2024-06-06 09:35] LABS: CALCIUM 8.1 mg/dL (8.5-10.1); MAGNESIUM 1.6 mg/dL (1.8-2.4)
[2024-06-06 09:36] LABS: BLOOD UREA NITROGEN 10.7 mg/dL (7-18)
[2024-06-06 09:38] LABS: CREATININE 1.2 mg/dL (0.55-1.3)
[2024-06-06 09:40] LABS: BILIRUBIN,TOTAL 0.6 mg/dL (0.2-1); TOT PROT 6.6 g/dl (6.4-8.2)
[2024-06-07 12:35] VITALS: BP 112/52; PULSE 83; TEMP 98.2
== END 2024-06-07 11:40 | disposition home health service (06) ==
LOC: JER 12:29 → JERBED 15:41 → J7W 21:19
PROVIDERS: ADMIT Internal Medicine; ATTEND Nurse Practitioner Family
PROC: 3E033GC Introduction of Other Therapeutic Substance into Peripheral Vein, Percutaneous Approach (ICD-10-PCS; principal; 2024-06-02)
PROC: 3E033GC Introduction of Other Therapeutic Substance into Peripheral Vein, Percutaneous Approach (ICD-10-PCS; 2024-06-02)
PROC: 3E0337Z Introduction of Electrolytic and Water Balance Substance into Peripheral Vein, Percutaneous Approach (ICD-10-PCS; 2024-06-02)
DX: K57.31 Diverticulosis of large intestine without perforation or abscess with bleeding (principal); I12.9 Hypertensive chronic kidney disease with stage 1 through stage 4 chronic kidney disease, or unspecified chronic kidney disease; G93.41 Metabolic encephalopathy; N17.9 Acute kidney failure, unspecified; G30.9 Alzheimer's disease, unspecified; F02.80 Dementia in other diseases classified elsewhere, unspecified severity, without behavioral disturbance, psychotic disturbance, mood disturbance, and anxiety; E43 Unspecified severe protein-calorie malnutrition; E78.5 Hyperlipidemia, unspecified; D12.6 Benign neoplasm of colon, unspecified; E11.9 Type 2 diabetes mellitus without complications; Z71.89 Other specified counseling; M62.81 Muscle weakness (generalized); K76.89 Other specified diseases of liver; R01.1 Cardiac murmur, unspecified; J45.909 Unspecified asthma, uncomplicated; Z88.8 Allergy status to other drugs, medicaments and biological substances
CPT/HCPCS: 36415; 71045-TC-FY; 76856-TC; 80048; 80053; 82272; 82962; 83735; 84100; 85025; 85027; 85610; 85730; 93005; 93010; 96361; 96365; 96375; 99285-25; G0378; J1756